=== PATIENT | female | born 1990 | race American Indian/Alaskan Native ===

== ENCOUNTER 2016-08-20 23:35 | Emergency (ER) | payer MEDICAID ==
[2016-08-21 05:12] VITALS: BP 134/84
[2016-08-21] MEDS ORDERED: MARCAINE 0.5% INFILTRATI ONE (05:27)
--- NOTE | 2016-08-21 05:42 | Emergency Department Report ---
Abscess Boil HPI - HPI Chief Complaint: Extremity Injury, Upper Stated Complaint: RT HAND MIDDLE FINGER SWOLLEN Time Seen by Provider: 08/21/16 05:09 Duration: >1 Week (2 weeks) Location: Upper Extremity (right third digit on hand) Severity: Moderate (6-10) History: Yes Pain (right third digit on hand), No Fever, No Purulent Drainage, No Numbness, No Foreign Body, No Previous History, No Insect Bite HPI: She and he reports that she is having swelling and redness around her fingernail of her right hand at the third finger. When asked if she bites her finger she says yes. She said this is going on for 2 weeks. Denies any drainage. Denies any injury to side. Denies any nausea or vomiting or fever or chills. She said that she did have time to take care of this case she had to work. Says she does not have any insurance and does not have a primary care despite having diabetes. She takes NovoLog and Lantus and her blood sugars are within normal limits. Denies any increase in urination, increased thirst. Denies any fever or chills or nausea or vomiting. Her only complaints is to her finger around her nail bed. Home Medications: Home Medications Medication Instructions Recorded Confirmed Last Taken Insulin Aspart Prot/Aspart(Nf) 15 units SQ TID 08/21/16 08/21/16 1 Day Ago [Novolog Mix 70/30] Insulin Glargine [Lantus VIAL] 40 units SQ HS 08/21/16 08/21/16 1 Day Ago Previous Rx's Medication Instructions Recorded Last Taken Type Sulfamethoxazole/Trimethoprim 1 each PO BID #20 tablet 08/21/16 Unknown Rx [Bactrim DS TAB] Allergies/Adverse Reactions: Allergies Allergy/AdvReac Type Severity Reaction Status Date / Time No Known Allergies Allergy Unverified 08/21/16 05:43 ED Review of Systems ROS: Stated complaint: RT HAND MIDDLE FINGER SWOLLEN Other details as noted in HPI Comment: All other systems reviewed and negative Constitutional: denies: chills, fever Eyes: denies: eye pain Respiratory: no symptoms reported Cardiovascular: denies: chest pain, palpitations, edema, syncope Gastrointestinal: denies: abdominal pain, nausea, vomiting, diarrhea Genitourinary: denies: urgency, dysuria, hematuria, discharge, abnormal menses, dyspareunia Musculoskeletal: arthralgia. denies: back pain, myalgia Skin: denies: rash Neurological: denies: headache ED Past Medical Hx - Past Medical History Previous Medical History?: Yes Hx Diabetes: Yes (IDDM) - Surgical History Past Surgical History?: No - Family History Family history: hypertension - Social History Smoking Status: Never Smoker Substance Use Type: None - Medications Home Medications: Home Medications Medication Instructions Recorded Confirmed Last Taken Type Insulin Aspart Prot/Aspart(Nf) 15 units SQ TID 08/21/16 08/21/16 1 Day Ago History [Novolog Mix 70/30] Insulin Glargine [Lantus VIAL] 40 units SQ HS 08/21/16 08/21/16 1 Day Ago History Sulfamethoxazole/Trimethoprim 1 each PO BID #20 tablet 08/21/16 Unknown Rx [Bactrim DS TAB] ED Abscess Boil Physical Exam - Exam General: Vital signs noted. No distress. Alert and acting appropriately. This is a 25-year-old female well-nourished well-developed in no acute distress. Exam: Yes Tenderness (right hand at third digit around nailbed with erythema, fluctuance and tenderness to palpate.), Yes Fluctuance (right hand third digit distal), Yes Surrounding Cellulites/Erythema (right hand third digit distally), Yes Normal Neurologic Exam, Yes Normal Circulation, No Lymphangitis, No Crepitation, No Heart Murmur Exam: Lungs: Auscultated bilaterally, no rhonchi wheezes or rales. Extremities: clubbing, cyanosis or edema. +2 pulses and no neurovascular compromise. Cardiovascular:S1S2, regular rate and rhythm negative murmur I & D Note - I & D Note I & D Note: Patient with paronychia at right third digit of hand distally around her nail bed. Patient digitally blocked with Marcaine 0.5% and attempted to drain with 18-gauge needle. Then under sterile procedure. No drainage noted from site. this is mostly cellulitis. There are dry dressing applied to area after cleansing with normal saline. Patient reports that her tetanus vaccine is up-to-date. SHe tolerated procedure well ED Course Vital Signs 08/21/16 08/21/16 00:54 05:12 Temperature 98.7 F Pulse Rate 84 71 Respiratory 18 18 Rate Blood Pressure 119/65 Blood Pressure 134/84 [Left] O2 Sat by Pulse 97 100 Oximetry - Reevaluation(s) Reevaluation #1: 08/21/16 07:24 See procedure note for digital block and incision and drainage Critical care attestation.: If time is entered above; I have spent that time in minutes in the direct care of this critically ill patient, excluding procedure time. ED Medical Decision Making - Medical Decision Making ED course: Patient with Paronychia to right third digit finger. Digital block and an incision and drainage done. No pus from site. This is mostly cellulitis. I instructed the patient that she needs to refrain from biting nails. I instructed her that I'll put her on medication to treat infection and she can take Tylenol for pain. Discharged home with prescription for Bactrim DS. I instructed her to follow-up with outside Medical Center since she does not have a primary care physician in 2-3 days. ED Disposition Clinical Impression: Paronychia of right middle finger, Arthralgia of right hand, Encounter for incision and drainage procedure, Cellulitis of right middle finger Disposition: DISCHARGED TO HOME OR SELFCARE Is pt being admited?: No Does the pt Need Aspirin: No Condition: Stable Instructions: Paronychia (ED), Cellulitis (ED) Additional Instructions: Please soak affected area and warm water 3-4 times a day. keep Affected area clean and dry. Refrain from biting her nails. She do not have a primary care physician, please follow-up with outside Medical Center in 2-3 days. See address and phone number and discharged instruction paperwork. Bactrim as prescribed. Prescriptions: Sulfamethoxazole/Trimethoprim [Bactrim DS TAB] 1 each PO BID #20 tablet Referrals: [facility] [Outside] - 2-3 Days Forms: Work/School Release Form(ED) - I & D Right Distal Finger Type of Procedure: Simple Site: right distal third digit of hand Blade Size: 18-gauge needle I & D Procedure: betadine prep, sterile drapes applied, sterile dressing applied Progress: No significant pus came from site. Area cleansed and sterile dressing applied and patient will be placed on antibiotic. - Nerve Block Consent Obtained: verbal consent Time Out Performed: Yes Local Anesthetic Used: Marcaine 0.5% Amount of anesthesia used: 1 Side: right (hand 3rd finger) Nerve Blocks: digital Procedure Successful: Yes Complications: none Patient Tolerated Procedure: well
== END 2016-08-21 07:37 | disposition home or self-care (01) ==
LOC: ED 23:35
DX: L03.011 Cellulitis of right finger (principal); M25.541 Pain in joints of right hand; E11.9 Type 2 diabetes mellitus without complications; Z79.4 Long term (current) use of insulin
CPT/HCPCS: 99282

== ENCOUNTER 2016-10-31 13:56 | Emergency (ER) | payer MEDICAID ==
[2016-10-31 14:40] LABS: Basophils % (Auto) 0.5 % (0.0-1.8); Eosinophils % (Auto) 0.9 % (0.0-4.3); Hematocrit 41.6 % (30.3-42.9); Hemoglobin 13.7 gm/dl (10.1-14.3); Mean Corpuscular HGB Conc 33 % (30-34); Mean Corpuscular Hemoglobin 29 pg (28-32); Mean Corpuscular Volume 87 fl (79-97); Platelet Count 283 K/mm3 (140-440); Red Blood Count 4.79 M/mm3 (3.65-5.03); Red Cell Distribution Width 12.9 % (13.2-15.2); White Blood Count 9.9 K/mm3 (4.5-11.0)
[2016-10-31 14:54] LABS: Anion Gap 16 mmol/L; Blood Urea Nitrogen 8 mg/dL (7-17); Calcium 8.3 mg/dL (8.4-10.2); Carbon Dioxide 25 mmol/L (22-30); Chloride 99.2 mmol/L (98-107); Glucose 375 mg/dL (65-100); Potassium 3.9 mmol/L (3.6-5.0); Sodium 136 mmol/L (137-145)
[2016-10-31 15:05] LABS: Bacteria,Urine 1+ /HPF (Negative); Bilirubin,Urine NEG (Negative); Blood,Urine NEG (Negative); Ketones,Urine NEG (Negative); Leukocyte Esterase,Urine SM (Negative); Mucus,Urine FEW /HPF; Nitrite,Urine NEG (Negative); Protein,Urine <15 mg/dL mg/dL (Negative); Urobilinogen,Urine < 2.0 mg/dL (<2.0)
[2016-10-31] MEDS ORDERED: NACL 0.9% 1000 ML 1,000 ML IV ONE (23:35)
--- NOTE | 2016-10-31 23:35 | Emergency Department Report ---
HPI - General Chief Complaint: Nausea/Vomiting/Diarrhea Time Seen by Provider: 10/31/16 23:16 - HPI HPI: Room 5 The patient is a 25-year-old female presenting with a chief complaint of nausea vomiting. The patient states she ran out of her insulin approximate 4 days ago and since then she began to feel "sick." The patient states this morning at 06: 00 she developed nausea vomiting began to feel weak and lightheaded. The patient states she's had a decreased appetite and when she drinks water it makes her want to vomit. Location: [see above] Duration: [see above] Quality: Lightheadedness Severity: Moderate Modifying factors: [see above] Context: [see above] Mode of transportation: [not driving] ED Past Medical Hx - Past Medical History Previous Medical History?: Yes Hx Diabetes: Yes (IDDM) - Surgical History Past Surgical History?: No - Family History Family history: no significant - Social History Smoking Status: Never Smoker Substance Use Type: None (denies illicit drug use) - Medications Home Medications: Home Medications Medication Instructions Recorded Confirmed Last Taken Type Insulin Aspart Prot/Aspart(Nf) 15 units SQ TID 08/21/16 08/21/16 1 Day Ago History [Novolog Mix 70/30] Insulin Glargine [Lantus VIAL] 40 units SQ HS 08/21/16 08/21/16 1 Day Ago History Sulfamethoxazole/Trimethoprim 1 each PO BID #20 tablet 08/21/16 Unknown Rx [Bactrim DS TAB] Insulin Detemir [Levemir VIAL] 40 unit SQ QHS #1 vial 10/31/16 Unknown Rx Insulin Lispro [HumaLOG VIAL] 15 units SQ AC #1 vial 10/31/16 Unknown Rx Sulfamethoxazole/Trimethoprim 1 each PO BID #14 tablet 10/31/16 Unknown Rx [Bactrim DS TAB] Promethazine [Phenergan TAB] 25 mg PO Q6HR PRN #20 tab 11/01/16 Unknown Rx ED Review of Systems ROS: Stated complaint: NAUSEA Other details as noted in HPI Comment: All other systems reviewed and negative Constitutional: weakness. denies: chills, fever Eyes: denies: eye pain, eye discharge, vision change ENT: denies: ear pain, throat pain Respiratory: denies: cough, shortness of breath, wheezing Cardiovascular: denies: chest pain, palpitations Endocrine: no symptoms reported Gastrointestinal: nausea, vomiting Genitourinary: denies: urgency, dysuria, discharge Musculoskeletal: denies: back pain, joint swelling, arthralgia Skin: denies: rash, lesions Neurological: denies: headache, weakness, paresthesias Psychiatric: denies: anxiety, depression Hematological/Lymphatic: denies: easy bleeding, easy bruising Physical Exam - Physical Exam Vital Signs: Vital Signs 10/31/16 14:05 Temperature 98.6 F Pulse Rate 60 Respiratory 18 Rate Blood Pressure 118/60 O2 Sat by Pulse 100 Oximetry Physical Exam: GENERAL: The patient is well-developed well-nourished female lying on stretcher using cell phone not appear to be in acute distress. [] HEENT: Normocephalic. Atraumatic. Extraocular motions are intact. Patient has moist mucous membranes. NECK: Supple. Trachea midline CHEST/LUNGS: Clear to auscultation. There is no respiratory distress noted. HEART/CARDIOVASCULAR: Regular. There is no tachycardia. There is no gallop rub or murmur. ABDOMEN: Abdomen is soft, with mild suprapubic discomfort to palpation. No rebound or guarding. Patient has normal bowel sounds. There is no abdominal distention. SKIN: There is no rash. There is no edema. There is no diaphoresis. NEURO: The patient is awake, alert, and oriented. The patient is cooperative. The patient has normal speech MUSCULOSKELETAL: There is no evidence of acute injury. ED Course Vital Signs 10/31/16 14:05 Temperature 98.6 F Pulse Rate 60 Respiratory 18 Rate Blood Pressure 118/60 O2 Sat by Pulse 100 Oximetry ED Medical Decision Making - Lab Data Result diagrams: 10/31/16 14:10 10/31/16 14:10 Laboratory Tests 10/31/16 10/31/16 10/31/16 14:10 14:10 14:25 WBC 9.9 RBC 4.79 Hgb 13.7 Hct 41.6 MCV 87 MCH 29 MCHC 33 RDW 12.9 L Plt Count 283 Lymph % (Auto) 32.0 [place] % (Auto) 4.2 Eos % (Auto) 0.9 Baso % (Auto) 0.5 Lymph # 3.2 [place] # 0.4 Eos # 0.1 Baso # 0.0 Seg Neutrophils % 62.4 Seg Neutrophils # 6.2 VBG pH Sodium 136 L Potassium 3.9 Chloride 99.2 Carbon Dioxide 25 Anion Gap 16 BUN 8 Creatinine 0.4 L Estimated GFR > 60 BUN/Creatinine Ratio 20.00 Glucose 375 H POC Glucose Calcium 8.3 L HCG, Qual Urine Color Straw Urine Turbidity Clear Urine pH 6.0 Ur Specific [place] 1.028 Urine Protein <15 mg/dl Urine Glucose (UA) >=500 Urine Ketones Neg Urine Blood Neg Urine Nitrite Neg Urine Bilirubin Neg Urine Urobilinogen < 2.0 Ur Leukocyte Esterase Sm Urine WBC (Auto) 18.0 H Urine RBC (Auto) 1.0 U Epithel Cells (Auto) 3.0 Urine Bacteria (Auto) 1+ Urine Mucus Few 10/31/16 10/31/16 10/31/16 14:25 15:41 23:30 WBC RBC Hgb Hct MCV MCH MCHC RDW Plt Count Lymph % (Auto) [place] % (Auto) Eos % (Auto) Baso % (Auto) Lymph # [place] # Eos # Baso # Seg Neutrophils % Seg Neutrophils # VBG pH 7.334 Sodium Potassium Chloride Carbon Dioxide Anion Gap BUN Creatinine Estimated GFR BUN/Creatinine Ratio Glucose POC Glucose 410 H Calcium HCG, Qual Negative Urine Color Urine Turbidity Urine pH Ur Specific [place] Urine Protein Urine Glucose (UA) Urine Ketones Urine Blood Urine Nitrite Urine Bilirubin Urine Urobilinogen Ur Leukocyte Esterase Urine WBC (Auto) Urine RBC (Auto) U Epithel Cells (Auto) Urine Bacteria (Auto) Urine Mucus - Differential Diagnosis DKA, hyperglycemia, dehydration, UTI Critical care attestation.: If time is entered above; I have spent that time in minutes in the direct care of this critically ill patient, excluding procedure time. ED Disposition Clinical Impression: Hyperglycemia, UTI (urinary tract infection), Nausea & vomiting Disposition: DC-01 TO HOME OR SELFCARE Is pt being admited?: No Does the pt Need Aspirin: No Condition: Stable Instructions: Diabetic Hyperglycemia (ED) Additional Instructions: Return to the emergency department immediately should you develop worsening symptoms, fever, inability to tolerate food or liquid or any other concerns. Prescriptions: Insulin Detemir [Levemir VIAL] 40 unit SQ QHS #1 vial Insulin Lispro [HumaLOG VIAL] 15 units SQ AC #1 vial Promethazine [Phenergan TAB] 25 mg PO Q6HR PRN #20 tab PRN Reason: Nausea Sulfamethoxazole/Trimethoprim [Bactrim DS TAB] 1 each PO BID #14 tablet Referrals: JULIUS GARCIA MD [Staff Physician] - 3-5 Days [facility] [Outside] - 3-5 Days Time of Disposition: 01:08
[2016-10-31] MEDS ORDERED: ZOFRAN IV ONE (23:38)
[2016-10-31] MEDS ORDERED: ZOFRAN ONE (23:38)
[2016-11-01 02:09] VITALS: BP 97/35
== END 2016-11-01 02:07 | disposition home or self-care (01) ==
LOC: ED 13:56
DX: E11.65 Type 2 diabetes mellitus with hyperglycemia (principal); N39.0 Urinary tract infection, site not specified; R11.2 Nausea with vomiting, unspecified; Z79.4 Long term (current) use of insulin
CPT/HCPCS: 36415; 80048; 81001; 82805; 82962; 84703; 85025; 96361; 96374; 96375; 99284; J2405; J7030; J1815

== ENCOUNTER 2019-01-14 18:03 | Emergency (ER) | payer SELFPAY ==
--- NOTE | 2019-01-14 18:29 | Emergency Department Report ---
Blank Doc - Documentation Documentation: 28-year-old female that presents with abd pain and n/v. This initial assessment/diagnostic orders/clinical plan/treatment(s) is/are subject to change based on patient's health status, clinical progression and re- assessment by fellow clinical providers in the ED. Further treatment and workup at subsequent clinical providers discretion. Patient/guardians urged not to elope from the ED as their condition may be serious if not clinically assessed and managed. Initial orders include: 1- Patient sent to [facility] for further evaluation and treatment 2- labs 3- UA
[2019-01-14 19:36] LABS: Bilirubin,Urine NEG (Negative); Blood,Urine NEG (Negative); Color,Urine Yellow (Yellow); Mucus,Urine 3+ /HPF; Protein,Urine <15 mg/dL mg/dL (Negative); Urobilinogen,Urine < 2.0 mg/dL (<2.0)
[2019-01-14 19:38] LABS: Basophils % (Auto) 0.3 % (0.0-1.8); Eosinophils # (Auto) 0.1 K/mm3 (0.0-0.4); Eosinophils % (Auto) 1.1 % (0.0-4.3); Hematocrit 43.2 % (30.3-42.9); Lymphocytes # (Auto) 1.5 K/mm3 (1.2-5.4); Lymphocytes % (Auto) 16.7 % (13.4-35.0); Mean Corpuscular HGB Conc 33 % (30-34); Mean Corpuscular Volume 87 fl (79-97); Monocytes # (Auto) 0.3 K/mm3 (0.0-0.8); Monocytes % (Auto) 3.8 % (0.0-7.3); Platelet Count 252 K/mm3 (140-440); Red Blood Count 4.98 M/mm3 (3.65-5.03); Red Cell Distribution Width 13.2 % (13.2-15.2)
[2019-01-14 19:38] LABS: HCG Qualitative,Urine Negative (Negative)
[2019-01-14 19:57] LABS: Alanine Aminotransferase 13 units/L (7-56); Albumin 3.3 g/dL (3.9-5); BUN/Creatinine Ratio 20; Blood Urea Nitrogen 10 mg/dL (7-17); Calcium 8.3 mg/dL (8.4-10.2); Hemolysis Index 17
[2019-01-14] MEDS ORDERED: PEPCID PO ONE (22:54)
[2019-01-14] MEDS ORDERED: TYLENOL PO ONE (22:54)
[2019-01-14] MEDS ORDERED: CARAFATE PO ONE (22:54)
[2019-01-14] MEDS ORDERED: ZOFRAN ORAL LIQ PO ONE (22:54)
--- NOTE | 2019-01-14 22:56 | Emergency Department Report ---
ED General Adult HPI - General Chief complaint: Nausea/Vomiting/Diarrhea Stated complaint: VOMITING/ABD PAIN Time Seen by Provider: 01/14/19 18:28 Source: patient, RN notes reviewed, old records reviewed Mode of arrival: Ambulatory Limitations: No Limitations - History of Present Illness Initial comments: This is a pleasant 28-year-old female. This patient is not known to this provider previously. She reports that she typically receives her medical care at [place]. She is a diabetic and appears to have a history of obesity. She states that she is not . She presents to the ER with a complaint of nausea, nonbloody, nonbilious, mild abdominal cramping, and 4-6 episodes of green watery diarrhea. Symptoms present for the past 24 hours. She cannot recall any recent travel, consuming raw or undercooked food, or sick contacts. Her symptoms improved on their own in the emergency room, and she began to consume cora jigar. She denies urinary symptoms. She feels mostly improved at this time. -: Gradual, hour(s) Location: abdomen Radiation: non-radiation Quality: aching Consistency: intermittent Improves with: rest Worsens with: none - Related Data Home Medications Medication Instructions Recorded Confirmed Last Taken Insulin Aspart Prot/Aspart(Nf) 15 units SQ TID 08/21/16 08/21/16 1 Day Ago [Novolog Mix 70/30] ~08/20/16 Insulin Glargine [Lantus VIAL] 40 units SQ HS 08/21/16 08/21/16 1 Day Ago ~08/20/16 Previous Rx's Medication Instructions Recorded Last Taken Type Sulfamethoxazole/Trimethoprim 1 each PO BID #20 tablet 08/21/16 Unknown Rx [Bactrim DS TAB] Insulin Detemir [Levemir VIAL] 40 unit SQ QHS #1 vial 10/31/16 Unknown Rx Insulin Lispro [HumaLOG VIAL] 15 units SQ AC #1 vial 10/31/16 Unknown Rx Sulfamethoxazole/Trimethoprim 1 each PO BID #14 tablet 10/31/16 Unknown Rx [Bactrim DS TAB] Promethazine [Phenergan TAB] 25 mg PO Q6HR PRN #20 tab 11/01/16 Unknown Rx Acetaminophen [Non-Aspirin Extra 500 mg PO Q6HR PRN #30 tablet 01/14/19 Unknown Rx Strength] Famotidine [Pepcid] 20 mg PO BID #10 tablet 01/14/19 Unknown Rx Ondansetron [Zofran Odt] 4 mg PO Q8HR PRN #20 tab.rapdis 01/14/19 Unknown Rx Allergies Allergy/AdvReac Type Severity Reaction Status Date / Time No Known Allergies Allergy Unverified 08/21/16 05:43 ED Review of Systems ROS: Stated complaint: VOMITING/ABD PAIN Other details as noted in HPI Constitutional: denies: fever Eyes: denies: eye discharge ENT: denies: congestion Respiratory: denies: wheezing Cardiovascular: denies: syncope Gastrointestinal: abdominal pain, nausea, vomiting, diarrhea Genitourinary: denies: dysuria Musculoskeletal: denies: myalgia Skin: denies: lesions Neurological: denies: weakness Hematological/Lymphatic: denies: easy bleeding ED Past Medical Hx - Past Medical History Previous Medical History?: Yes Hx Diabetes: Yes (IDDM) - Social History Smoking Status: Never Smoker Substance Use Type: None - Medications Home Medications: Home Medications Medication Instructions Recorded Confirmed Last Taken Type Insulin Aspart Prot/Aspart(Nf) 15 units SQ TID 08/21/16 08/21/16 1 Day Ago History [Novolog Mix 70/30] ~08/20/16 Insulin Glargine [Lantus VIAL] 40 units SQ HS 08/21/16 08/21/16 1 Day Ago History ~08/20/16 Sulfamethoxazole/Trimethoprim 1 each PO BID #20 tablet 08/21/16 Unknown Rx [Bactrim DS TAB] Insulin Detemir [Levemir VIAL] 40 unit SQ QHS #1 vial 10/31/16 Unknown Rx Insulin Lispro [HumaLOG VIAL] 15 units SQ AC #1 vial 10/31/16 Unknown Rx Sulfamethoxazole/Trimethoprim 1 each PO BID #14 tablet 10/31/16 Unknown Rx [Bactrim DS TAB] Promethazine [Phenergan TAB] 25 mg PO Q6HR PRN #20 tab 11/01/16 Unknown Rx Acetaminophen [Non-Aspirin Extra 500 mg PO Q6HR PRN #30 tablet 01/14/19 Unknown Rx Strength] Famotidine [Pepcid] 20 mg PO BID #10 tablet 01/14/19 Unknown Rx Ondansetron [Zofran Odt] 4 mg PO Q8HR PRN #20 tab.rapdis 01/14/19 Unknown Rx ED Physical Exam - General Limitations: No Limitations General appearance: alert, in no apparent distress, obese - Head Head exam: Present: atraumatic, normocephalic - Eye Eye exam: Present: normal appearance, EOMI. Absent: nystagmus - ENT ENT exam: Present: normal exam, normal orophraynx, mucous membranes moist, normal external ear exam - Neck Neck exam: Present: normal inspection, full ROM. Absent: tenderness, meningismus - Respiratory Respiratory exam: Present: normal lung sounds bilaterally. Absent: respiratory distress - Cardiovascular Cardiovascular Exam: Present: regular rate, normal rhythm, normal heart sounds. Absent: bradycardia, tachycardia, irregular rhythm, systolic murmur, diastolic murmur, rubs, gallop - GI/Abdominal GI/Abdominal exam: Present: soft, normal bowel sounds, other (there is negative Rovsing sign. There is a negative [place]red[place] sign. The abdomen is soft and benign.). Absent: distended, tenderness, guarding, rebound, rigid, pulsatile mass - Extremities Exam Extremities exam: Present: normal inspection, full ROM, other (2+ pulses noted in the bilateral upper, lower extremities. There is no long bone tenderness. Musculoskeletal compartments are soft. The pelvis is stable.). Absent: pedal edema, calf tenderness - Back Exam Back exam: Present: normal inspection, full ROM. Absent: tenderness, CVA tenderness (R), CVA tenderness (L), paraspinal tenderness, vertebral tenderness - Neurological Exam Neurological exam: Present: alert, other (there is no facial droop. The tongue is midline. Extraocular movements are intact bilaterally. Patient speaking in full complete sentences. Shoulder shrug is intact bilaterally. Hearing is grossly intact bilaterally. Visual acuity intact to finger counting and color perception at a close distance. 5/5 strength 4 extremities. Sensation intact to light touch in 4 extremities.). Absent: motor sensory deficit - Psychiatric Psychiatric exam: Present: normal affect, normal mood - Skin Skin exam: Present: warm, dry, intact, normal color. Absent: rash ED Course Vital Signs 01/14/19 01/14/19 01/14/19 18:07 23:19 23:36 Temperature 99.3 F 98.6 F Pulse Rate 87 76 Respiratory 16 18 18 Rate Blood Pressure 109/61 Blood Pressure 119/71 [Left] O2 Sat by Pulse 95 100 Oximetry ED Medical Decision Making - Lab Data Result diagrams: 01/14/19 19:19 01/14/19 19:19 Vital Signs 01/14/19 01/14/19 01/14/19 18:07 23:19 23:36 Temperature 99.3 F 98.6 F Pulse Rate 87 76 Respiratory 16 18 18 Rate Blood Pressure 109/61 Blood Pressure 119/71 [Left] O2 Sat by Pulse 95 100 Oximetry Lab Results 01/14/19 01/14/19 01/14/19 Range/Units 19:19 19:19 Unknown WBC 8.8 (4.5-11.0) K/mm3 RBC 4.98 (3.65-5.03) M/mm3 Hgb 14.0 (10.1-14.3) gm/dl Hct 43.2 H (30.3-42.9) % MCV 87 (79-97) fl MCH 28 (28-32) pg MCHC 33 (30-34) % RDW 13.2 (13.2-15.2) % Plt Count 252 (140-440) K/mm3 Lymph % (Auto) 16.7 (13.4-35.0) % [place] % (Auto) 3.8 (0.0-7.3) % Eos % (Auto) 1.1 (0.0-4.3) % Baso % (Auto) 0.3 (0.0-1.8) % Lymph # 1.5 (1.2-5.4) K/mm3 [place] # 0.3 (0.0-0.8) K/mm3 Eos # 0.1 (0.0-0.4) K/mm3 Baso # 0.0 (0.0-0.1) K/mm3 Seg Neutrophils % 78.1 H (40.0-70.0) % Seg Neutrophils # 6.9 (1.8-7.7) K/mm3 Sodium 135 L (137-145) mmol/L Potassium 3.6 (3.6-5.0) mmol/L Chloride 102.5 (98-107) mmol/L Carbon Dioxide 20 L (22-30) mmol/L Anion Gap 16 mmol/L BUN 10 (7-17) mg/dL Creatinine 0.5 L (0.7-1.2) mg/dL Estimated GFR > 60 ml/min BUN/Creatinine Ratio 20 % Glucose 222 H (65-100) mg/dL Calcium 8.3 L (8.4-10.2) mg/dL Total Bilirubin 0.90 (0.1-1.2) mg/dL AST 13 (5-40) units/L ALT 13 (7-56) units/L Alkaline Phosphatase 62 (35-129) units/L Total Protein 6.4 (6.3-8.2) g/dL Albumin 3.3 L (3.9-5) g/dL Albumin/Globulin Ratio 1.1 % Lipase 6 L (13-60) units/L Urine Color Yellow (Yellow) Urine Turbidity Clear (Clear) Urine pH 5.0 (5.0-7.0) Ur Specific [place] 1.024 (1.003-1.030) Urine Protein <15 mg/dl (Negative) mg/dL Urine Glucose (UA) Neg (Negative) mg/dL Urine Ketones Neg (Negative) mg/dL Urine Blood Neg (Negative) Urine Nitrite Neg (Negative) Urine Bilirubin Neg (Negative) Urine Urobilinogen < 2.0 (<2.0) mg/dL Ur Leukocyte Esterase Neg (Negative) Urine WBC (Auto) 4.0 (0.0-6.0) /HPF Urine RBC (Auto) 2.0 (0.0-6.0) /HPF U Epithel Cells (Auto) 1.0 (0-13.0) /HPF Urine Mucus 3+ /HPF Urine HCG, Qual Negative (Negative) - EKG Data -: EKG Interpreted by [facility] EKG shows normal: sinus rhythm Rate: normal - EKG Data When compared to previous EKG there are: previous EKG unavailable 01/14/19 23:49 There is no prior EKG available for comparison. This EKG is not consistent with ST elevation myocardial infarction. The EKG shows a sinus rhythm, axis, QTC within normal limits, there is low voltage, the EKG is not consistent with STEMI, there is no prior for comparison. The EKG is fairly unremarkable. - Medical Decision Making Differential diagnosis, including but not limited to: Gastroenteritis, viral syndrome, urinary tract infection, incidental hyperglycemia Assessment and plan: 28-year-old female endorsing nausea, vomiting, diarrhea and abdominal discomfort. The patient is afebrile with reassuring vital signs. With distraction, abdomen soft and benign, with no rebound, guarding or pe ritoneal signs. Patient tolerating oral feeds and liquids in the emergency room without difficulty. Minimal hyperglycemia reviewed and appreciated, there is no anion gap acidosis does not require emergent intervention at this time. The patient has not demonstrated physical exam findings that would require advanced imaging at this time. She's been observed in the ER for a few hours without clinical decompensation. She is medically suitable to be discharged with outpatient supportive care. She indicates she is reliable to follow-up. Critical care attestation.: If time is entered above; I have spent that time in minutes in the direct care of this critically ill patient, excluding procedure time. ED Disposition Clinical Impression: History of nausea and vomiting, History of diarrhea Disposition: DC- TO HOME OR SELFCARE Is pt being admited?: No Does the pt Need Aspirin: No Condition: Stable Additional Instructions: Avoid consumption of Motrin, ibuprofen, Naprosyn, Aleve. Avoid consumption of heavy and spicy foods. Advance diet as tolerated. As discussed, initiate gentle foods, red, rice, apples, toast, salty chicken soup. Please make certain to wash hands with soap and water before and after urinating, defecating, vomiting, and before handling food. Patient most likely has a virus, and this is typically a self resolving condition. Please follow-up with the primary care doctor within 7-10 days for repeat checkup and evaluation. Please return to the emergency room right away with new, worsening, different symptoms not present on the initial emergency room evaluation. Prescriptions: Acetaminophen [Non-Aspirin Extra Strength] 500 mg PO Q6HR PRN #30 tablet PRN Reason: Pain , Severe (7-10) Famotidine [Pepcid] 20 mg PO BID #10 tablet Ondansetron [Zofran Odt] 4 mg PO Q8HR PRN #20 tab.rapdis PRN Reason: Nausea Referrals: PRIMARY CARE, [Primary Care Provider] - 3-5 Days [facility] [Provider Group] - 3-5 Days [facility] [Provider Group] - 3-5 Days Forms: Work/School Release Form(ED)
[2019-01-14 23:20] VITALS: BP 119/71
== END 2019-01-15 00:05 | disposition home or self-care (01) ==
LOC: ED 18:03
DX: R11.2 Nausea with vomiting, unspecified (principal); R19.7 Diarrhea, unspecified; E66.9 Obesity, unspecified; Z68.41 Body mass index [BMI] 40.0-44.9, adult; E11.65 Type 2 diabetes mellitus with hyperglycemia; Z79.4 Long term (current) use of insulin; Z79.899 Other long term (current) drug therapy
CPT/HCPCS: 36415; 80053; 81001; 81025; 83690; 85025; 93005; 93010; 99283; Q0162

== ENCOUNTER 2019-11-21 09:21 | Emergency (ER) | payer OTHER ==
[2019-11-21 09:26] VITALS: BP 133/78
[2019-11-21] MEDS ORDERED: SODIUM CHLORIDE 0.9% 1000 ML 1,000 ML IV ONE (10:03)
[2019-11-21] MEDS ORDERED: ONDANSETRON 4 MG/2 ML INJ IV ONE (10:03)
[2019-11-21 10:24] LABS: Basophils # (Auto) 0.1 K/mm3 (0.0-0.1); Basophils % (Auto) 1.1 % (0.0-1.8); Eosinophils # (Auto) 0.2 K/mm3 (0.0-0.4); Eosinophils % (Auto) 1.6 % (0.0-4.3); Hematocrit 39.7 % (30.3-42.9); Hemoglobin 13.3 gm/dl (10.1-14.3); Lymphocytes # (Auto) 2.6 K/mm3 (1.2-5.4); Lymphocytes % (Auto) 26.8 % (13.4-35.0); Mean Corpuscular HGB Conc 34 % (30-34); Mean Corpuscular Volume 86 fl (79-97); Monocytes # (Auto) 0.4 K/mm3 (0.0-0.8); Monocytes % (Auto) 4.5 % (0.0-7.3); Red Blood Count 4.62 M/mm3 (3.65-5.03)
[2019-11-21 10:25] LABS: Platelet Count 258 K/mm3 (140-440)
[2019-11-21 10:34] LABS: Alanine Aminotransferase 13 units/L (7-56); Albumin 3.8 g/dL (3.9-5); Blood Urea Nitrogen 10 mg/dL (7-17); Calcium 9.4 mg/dL (8.4-10.2); Hemolysis Index 15
[2019-11-21 10:35] LABS: Bacteria,Urine 1+ /HPF (Negative); Bilirubin,Urine NEG (Negative); Blood,Urine LG (Negative); Color,Urine Yellow (Yellow); Mucus,Urine 1+ /HPF; Urobilinogen,Urine < 2.0 mg/dL (<2.0)
[2019-11-21 10:38] LABS: BUN/Creatinine Ratio 17
--- NOTE | 2019-11-21 11:06 | Emergency Department Report ---
ED General Adult HPI - General Chief complaint: Nausea/Vomiting/Diarrhea Stated complaint: light headed/vomiting Time Seen by Provider: 11/21/19 09:54 Source: patient Mode of arrival: Ambulatory Limitations: No Limitations - History of Present Illness Initial comments: Patient is a 28-year-old female presents emergency room with complaints of nausea vomiting that began a couple days ago. She states that she has approximately 3 episodes per day. She is able to tolerate p.o. intake. She states over the last couple of days that her blood glucose has been running high. She states that she talked to her primary care doctor who advised her to increase her insulin units. She states that she had not taken her blood sugar today to see what the value was. She states that she also has some mild lower abdominal cramping. She denies any diarrhea, fever, dysuria, dark urine, urinary frequency, hematemesis, hematochezia, melena. She denies any sick contacts, recent travel, recent antibiotics, water from a different source. She has a past medical history of diabetes and uses insulin. No allergies to medications. Last menstrual cycle 11/01/2019. - Related Data Home Medications Medication Instructions Recorded Confirmed Last Taken Insulin Aspart Prot/Aspart(Nf) 15 units SQ TID 08/21/16 08/21/16 1 Day Ago [Novolog Mix 70/30] ~08/20/16 Insulin Glargine [Lantus VIAL] 40 units SQ HS 08/21/16 08/21/16 1 Day Ago ~08/20/16 Previous Rx's Medication Instructions Recorded Last Taken Type Sulfamethoxazole/Trimethoprim 1 each PO BID #20 tablet 08/21/16 Unknown Rx [Bactrim DS TAB] Insulin Detemir [Levemir VIAL] 40 unit SQ QHS #1 vial 10/31/16 Unknown Rx Insulin Lispro [HumaLOG VIAL] 15 units SQ AC #1 vial 10/31/16 Unknown Rx Sulfamethoxazole/Trimethoprim 1 each PO BID #14 tablet 10/31/16 Unknown Rx [Bactrim DS TAB] Promethazine [Phenergan TAB] 25 mg PO Q6HR PRN #20 tab 11/01/16 Unknown Rx Acetaminophen [Non-Aspirin Extra 500 mg PO Q6HR PRN #30 tablet 01/14/19 Unknown Rx Strength] Famotidine [Pepcid] 20 mg PO BID #10 tablet 01/14/19 Unknown Rx Ondansetron [Zofran Odt] 4 mg PO Q8HR PRN #20 tab.rapdis 01/14/19 Unknown Rx Ondansetron [Zofran Odt] 4 mg PO Q8HR PRN #10 tab.rapdis 11/21/19 Unknown Rx cephALEXin [Keflex] 500 mg PO BID 7 Days #14 cap 11/21/19 Unknown Rx Allergies Allergy/AdvReac Type Severity Reaction Status Date / Time No Known Allergies Allergy Unverified 08/21/16 05:43 ED Review of Systems ROS: Stated complaint: light headed/vomiting Other details as noted in HPI Comment: All other systems reviewed and negative ED Past Medical Hx - Past Medical History Previous Medical History?: Yes Hx Diabetes: Yes (IDDM) - Surgical History Past Surgical History?: Yes Additional Surgical History: Tonsilectomy - Social History Smoking Status: Never Smoker Substance Use Type: None - Medications Home Medications: Home Medications Medication Instructions Recorded Confirmed Last Taken Type Insulin Aspart Prot/Aspart(Nf) 15 units SQ TID 08/21/16 08/21/16 1 Day Ago History [Novolog Mix 70/30] ~08/20/16 Insulin Glargine [Lantus VIAL] 40 units SQ HS 08/21/16 08/21/16 1 Day Ago History ~08/20/16 Sulfamethoxazole/Trimethoprim 1 each PO BID #20 tablet 08/21/16 Unknown Rx [Bactrim DS TAB] Insulin Detemir [Levemir VIAL] 40 unit SQ QHS #1 vial 10/31/16 Unknown Rx Insulin Lispro [HumaLOG VIAL] 15 units SQ AC #1 vial 10/31/16 Unknown Rx Sulfamethoxazole/Trimethoprim 1 each PO BID #14 tablet 10/31/16 Unknown Rx [Bactrim DS TAB] Promethazine [Phenergan TAB] 25 mg PO Q6HR PRN #20 tab 11/01/16 Unknown Rx Acetaminophen [Non-Aspirin Extra 500 mg PO Q6HR PRN #30 tablet 01/14/19 Unknown Rx Strength] Famotidine [Pepcid] 20 mg PO BID #10 tablet 01/14/19 Unknown Rx Ondansetron [Zofran Odt] 4 mg PO Q8HR PRN #20 tab.rapdis 10/16/19 Unknown Rx Ondansetron [Zofran Odt] 4 mg PO Q8HR PRN #10 tab.rapdis 11/21/19 Unknown Rx cephALEXin [Keflex] 500 mg PO BID 7 Days #14 cap 11/21/19 Unknown Rx ED Physical Exam - General Limitations: No Limitations General appearance: alert, in no apparent distress - Head Head exam: Present: atraumatic, normocephalic - Eye Eye exam: Present: normal appearance - ENT ENT exam: Present: mucous membranes moist - Respiratory Respiratory exam: Present: normal lung sounds bilaterally. Absent: respiratory distress, wheezes, rales, rhonchi, stridor, chest wall tenderness, accessory muscle use, decreased breath sounds, prolonged expiratory - Cardiovascular Cardiovascular Exam: Present: regular rate, normal rhythm, normal heart sounds. Absent: systolic murmur, diastolic murmur, rubs, gallop - GI/Abdominal GI/Abdominal exam: Present: soft, normal bowel sounds. Absent: distended, tenderness, guarding, rebound, rigid - Neurological Exam Neurological exam: Present: alert, oriented X3 - Psychiatric Psychiatric exam: Present: normal affect, normal mood - Skin Skin exam: Present: warm, dry, intact ED Course Vital Signs 11/21/19 09:24 Temperature 97.9 F Pulse Rate 59 L Respiratory 18 Rate Blood Pressure 133/78 O2 Sat by Pulse 99 Oximetry ED Medical Decision Making - Lab Data Result diagrams: 11/21/19 09:50 11/21/19 09:50 Lab Results 11/21/19 11/21/19 11/21/19 Range/Units 09:42 09:50 09:50 WBC 9.8 (4.5-11.0) K/mm3 RBC 4.62 (3.65-5.03) M/mm3 Hgb 13.3 (10.1-14.3) gm/dl Hct 39.7 (30.3-42.9) % MCV 86 (79-97) fl MCH 29 (28-32) pg MCHC 34 (30-34) % RDW 13.0 L (13.2-15.2) % Plt Count 258 (140-440) K/mm3 Lymph % (Auto) 26.8 (13.4-35.0) % [place] % (Auto) 4.5 (0.0-7.3) % Eos % (Auto) 1.6 (0.0-4.3) % Baso % (Auto) 1.1 (0.0-1.8) % Lymph # 2.6 (1.2-5.4) K/mm3 [place] # 0.4 (0.0-0.8) K/mm3 Eos # 0.2 (0.0-0.4) K/mm3 Baso # 0.1 (0.0-0.1) K/mm3 Seg Neutrophils % 66.0 (40.0-70.0) % Seg Neutrophils # 6.5 (1.8-7.7) K/mm3 Sodium 138 (137-145) mmol/L Potassium 4.0 (3.6-5.0) mmol/L Chloride 99.9 (98-107) mmol/L Carbon Dioxide 23 (22-30) mmol/L Anion Gap 19 mmol/L BUN 10 (7-17) mg/dL Creatinine 0.6 (0.6-1.2) mg/dL Estimated GFR > 60 ml/min BUN/Creatinine Ratio 17 % Glucose 214 H (65-100) mg/dL POC Glucose 178 H (70-105) Calcium 9.4 (8.4-10.2) mg/dL Total Bilirubin 0.90 (0.1-1.2) mg/dL AST 14 (5-40) units/L ALT 13 (7-56) units/L Alkaline Phosphatase 77 (35-129) units/L Total Protein 7.9 (6.3-8.2) g/dL Albumin 3.8 L (3.9-5) g/dL Albumin/Globulin Ratio 0.9 % Lipase 10 L (13-60) units/L HCG, Qual (Negative) Urine Color (Yellow) Urine Turbidity (Clear) Urine pH (5.0-7.0) Ur Specific [place] (1.003-1.030) Urine Protein (Negative) mg/dL Urine Glucose (UA) (Negative) mg/dL Urine Ketones (Negative) mg/dL Urine Blood (Negative) Urine Nitrite (Negative) Urine Bilirubin (Negative) Urine Urobilinogen (<2.0) mg/dL Ur Leukocyte Esterase (Negative) Urine WBC (Auto) (0.0-6.0) /HPF Urine RBC (Auto) (0.0-6.0) /HPF U Epithel Cells (Auto) (0-13.0) /HPF Urine Bacteria (Auto) (Negative) /HPF Urine Mucus /HPF 11/21/19 11/21/19 Range/Units 09:50 10:07 WBC (4.5-11.0) K/mm3 RBC (3.65-5.03) M/mm3 Hgb (10.1-14.3) gm/dl Hct (30.3-42.9) % MCV (79-97) fl MCH (28-32) pg MCHC (30-34) % RDW (13.2-15.2) % Plt Count (140-440) K/mm3 Lymph % (Auto) (13.4-35.0) % [place] % (Auto) (0.0-7.3) % Eos % (Auto) (0.0-4.3) % Baso % (Auto) (0.0-1.8) % Lymph # (1.2-5.4) K/mm3 [place] # (0.0-0.8) K/mm3 Eos # (0.0-0.4) K/mm3 Baso # (0.0-0.1) K/mm3 Seg Neutrophils % (40.0-70.0) % Seg Neutrophils # (1.8-7.7) K/mm3 Sodium (137-145) mmol/L Potassium (3.6-5.0) mmol/L Chloride (98-107) mmol/L Carbon Dioxide (22-30) mmol/L Anion Gap mmol/L BUN (7-17) mg/dL Creatinine (0.6-1.2) mg/dL Estimated GFR ml/min BUN/Creatinine Ratio % Glucose (65-100) mg/dL POC Glucose (70-105) Calcium (8.4-10.2) mg/dL Total Bilirubin (0.1-1.2) mg/dL AST (5-40) units/L ALT (7-56) units/L Alkaline Phosphatase (35-129) units/L Total Protein (6.3-8.2) g/dL Albumin (3.9-5) g/dL Albumin/Globulin Ratio % Lipase (13-60) units/L HCG, Qual Negative (Negative) Urine Color Yellow (Yellow) Urine Turbidity Clear (Clear) Urine pH 5.0 (5.0-7.0) Ur Specific [place] 1.026 (1.003-1.030) Urine Protein 30 mg/dl (Negative) mg/dL Urine Glucose (UA) 150 (Negative) mg/dL Urine Ketones Neg (Negative) mg/dL Urine Blood Lg (Negative) Urine Nitrite Neg (Negative) Urine Bilirubin Neg (Negative) Urine Urobilinogen < 2.0 (<2.0) mg/dL Ur Leukocyte Esterase Tr (Negative) Urine WBC (Auto) 15.0 H (0.0-6.0) /HPF Urine RBC (Auto) 5.0 (0.0-6.0) /HPF U Epithel Cells (Auto) 4.0 (0-13.0) /HPF Urine Bacteria (Auto) 1+ (Negative) /HPF Urine Mucus 1+ /HPF - Medical Decision Making Patient is a 28-year-old female presents emergency room with complaints of nausea vomiting that began a couple days ago. She states that she has approximately 3 episodes per day. She is able to tolerate p.o. intake. She states over the last couple of days that her blood glucose has been running high. She states that she talked to her primary care doctor who advised her to increase her insulin units. She states that she had not taken her blood sugar today to see what the value was. She states that she also has some mild lower abdominal cramping. She denies any diarrhea, fever, dysuria, dark urine, urinary frequency, hematemesis, hematochezia, melena. She denies any sick contacts, recent travel, recent antibiotics, water from a different source. She has a past medical history of diabetes and uses insulin. No allergies to medications. Last menstrual cycle 11/01/2019. Vitals are normal. No abdominal tenderness on exam, no rebound, no rigidity, no peritoneal signs, normal bowel sounds. Labs with blood sugar of 214, otherwise normal. UA shows evidence of UTI, there are no ketones present in the urine. Patient has no leukocytosis. Patient given 1 L fluids and Zofran and symptoms completely resolved and she was able to tolerate p.o. intake and was ready to go home. Patient given prescription for Keflex and Zofran. Advised patient Please take medication as prescribed. Please increase your water intake. Please follow-up with your primary care doctor. Return to emergency room for any worsening symptoms. Critical care attestation.: If time is entered above; I have spent that time in minutes in the direct care of this critically ill patient, excluding procedure time. ED Disposition Clinical Impression: Hyperglycemia UTI (urinary tract infection) Qualifiers: Urinary tract infection type: acute cystitis Hematuria presence: without hematuria Qualified Code(s): N30.00 - Acute cystitis without hematuria Nausea & vomiting Qualifiers: Vomiting type: unspecified Vomiting Intractability: non-intractable Qualified Code(s): R11.2 - Nausea with vomiting, unspecified Disposition: TO HOME OR SELFCARE Is pt being admited?: No Does the pt Need Aspirin: No Condition: Stable Instructions: Urinary Tract Infection in Women (ED), Gastroenteritis (ED) Additional Instructions: Please take medication as prescribed. Please increase your water intake. Please follow-up with your primary care doctor. Return to emergency room for any worsening symptoms. Prescriptions: cephALEXin [Keflex] 500 mg PO BID 7 Days #14 cap Ondansetron [Zofran Odt] 4 mg PO Q8HR PRN #10 tab.rapdis PRN Reason: Nausea And Vomiting Referrals: DENNIS HINOJOSA MD [Primary Care Provider] - 2-3 Days Forms: Work/School Release Form(ED) Time of Disposition: 11:05 Print Language: ARABIC
== END 2019-11-21 11:35 | disposition home or self-care (01) ==
LOC: ED 09:21
DX: R11.2 Nausea with vomiting, unspecified (principal); I10 Essential (primary) hypertension; Z79.4 Long term (current) use of insulin; Z79.899 Other long term (current) drug therapy
CPT/HCPCS: 36415; 80053; 81001; 82962; 83690; 84703; 85025; 87086; 96361; 96374; 99283; J2405; J7030

== ENCOUNTER 2020-01-29 11:02 | Emergency (ER) | payer SELFPAY ==
[2020-01-29 11:16] VITALS: BP 115/50
--- NOTE | 2020-01-29 12:15 | XRay Report ---
LEFT HUMERUS 2 VIEWS INDICATION / CLINICAL INFORMATION: left upper arm pain s/p fall COMPARISON: None available. FINDINGS: BONES / JOINT(S): No acute fracture or subluxation. No significant arthritis. SOFT TISSUES: No significant abnormality. ADDITIONAL FINDINGS: None. Signer Name: Tc Poon MD Signed: 01/29/2020 12:10 PM Workstation Name: [id number]
--- NOTE | 2020-01-29 12:19 | Emergency Department Report ---
ED Upper Extremity Inj HPI - General Chief Complaint: Extremity Injury, Upper Stated Complaint: LFT ARM FALL INJURY/PAIN Time Seen by Provider: 01/29/20 11:19 Source: patient Mode of arrival: Ambulatory Limitations: No Limitations - History of Present Illness Initial Comments: Patient is a 29-year-old female presents emergency room with complaints of a left upper arm injury that occurred yesterday. She states that the floor was wet and she accidentally slipped and fell and landed on her left upper arm. She states that since then she has had pain and some swelling. She denies ever injuring in the past. She denies any numbness or weakness. She has a past medical history of diabetes. No allergies to medications. Last menstrual cycle January 05. - Related Data Home Medications Medication Instructions Recorded Confirmed Last Taken Insulin Aspart Prot/Aspart(Nf) 15 units SQ TID 08/21/16 08/21/16 1 Day Ago [Novolog Mix 70/30] ~08/20/16 Insulin Glargine [Lantus VIAL] 40 units SQ HS 08/21/16 08/21/16 1 Day Ago ~08/20/16 Previous Rx's Medication Instructions Recorded Last Taken Type Sulfamethoxazole/Trimethoprim 1 each PO BID #20 tablet 08/21/16 Unknown Rx [Bactrim DS TAB] Insulin Detemir [Levemir VIAL] 40 unit SQ QHS #1 vial 10/31/16 Unknown Rx Insulin Lispro [HumaLOG VIAL] 15 units SQ AC #1 vial 10/31/16 Unknown Rx Sulfamethoxazole/Trimethoprim 1 each PO BID #14 tablet 10/31/16 Unknown Rx [Bactrim DS TAB] Promethazine [Phenergan TAB] 25 mg PO Q6HR PRN #20 tab 11/01/16 Unknown Rx Acetaminophen [Non-Aspirin Extra 500 mg PO Q6HR PRN #30 tablet 01/14/19 Unknown Rx Strength] Famotidine [Pepcid] 20 mg PO BID #10 tablet 01/14/19 Unknown Rx Ondansetron [Zofran Odt] 4 mg PO Q8HR PRN #20 tab.rapdis 01/14/19 Unknown Rx Ondansetron [Zofran Odt] 4 mg PO Q8HR PRN #10 tab.rapdis 11/21/19 Unknown Rx cephALEXin [Keflex] 500 mg PO BID 7 Days #14 cap 11/21/19 Unknown Rx Naproxen [EC-Naprosyn] 500 mg PO BID PRN #14 tablet. 01/29/20 Unknown Rx Allergies Allergy/AdvReac Type Severity Reaction Status Date / Time No Known Allergies Allergy Unverified 08/21/16 05:43 ED Review of Systems ROS: Stated complaint: LFT ARM FALL INJURY/PAIN Other details as noted in HPI Comment: All other systems reviewed and negative ED Past Medical Hx - Past Medical History Hx Diabetes: Yes (IDDM) - Surgical History Additional Surgical History: Tonsilectomy - Social History Smoking Status: Never Smoker Substance Use Type: None - Medications Home Medications: Home Medications Medication Instructions Recorded Confirmed Last Taken Type Insulin Aspart Prot/Aspart(Nf) 15 units SQ TID 08/21/16 08/21/16 1 Day Ago History [Novolog Mix 70/30] ~08/20/16 Insulin Glargine [Lantus VIAL] 40 units SQ HS 08/21/16 08/21/16 1 Day Ago History ~08/20/16 Sulfamethoxazole/Trimethoprim 1 each PO BID #20 tablet 08/21/16 Unknown Rx [Bactrim DS TAB] Insulin Detemir [Levemir VIAL] 40 unit SQ QHS #1 vial 10/31/16 Unknown Rx Insulin Lispro [HumaLOG VIAL] 15 units SQ AC #1 vial 10/31/16 Unknown Rx Sulfamethoxazole/Trimethoprim 1 each PO BID #14 tablet 10/31/16 Unknown Rx [Bactrim DS TAB] Promethazine [Phenergan TAB] 25 mg PO Q6HR PRN #20 tab 11/01/16 Unknown Rx Acetaminophen [Non-Aspirin Extra 500 mg PO Q6HR PRN #30 tablet 01/14/19 Unknown Rx Strength] Famotidine [Pepcid] 20 mg PO BID #10 tablet 01/14/19 Unknown Rx Ondansetron [Zofran Odt] 4 mg PO Q8HR PRN #20 tab.rapdis 01/14/19 Unknown Rx Ondansetron [Zofran Odt] 4 mg PO Q8HR PRN #10 tab.rapdis 11/21/19 Unknown Rx cephALEXin [Keflex] 500 mg PO BID 7 Days #14 cap 11/21/19 Unknown Rx Naproxen [EC-Naprosyn] 500 mg PO BID PRN #14 tablet. 01/29/20 Unknown Rx ED Physical Exam - General Limitations: No Limitations General appearance: alert, in no apparent distress - Head Head exam: Present: atraumatic, normocephalic - Eye Eye exam: Present: normal appearance, EOMI. Absent: periorbital swelling, periorbital tenderness - ENT ENT exam: Present: mucous membranes moist - Respiratory Respiratory exam: Absent: respiratory distress, accessory muscle use - Extremities Exam Extremities exam: Present: other (ttp to the left humerus region mostly in the muscles, there is ecchymosis present and mild edema, FROM of the LUE, neurovascularly intact, no obvious deformity) - Neurological Exam Neurological exam: Present: alert, oriented X3 - Psychiatric Psychiatric exam: Present: normal affect, normal mood - Skin Skin exam: Present: warm, dry ED Course Vital Signs 01/29/20 11:14 Temperature 98.5 F Pulse Rate 68 Respiratory 18 Rate Blood Pressure 115/50 O2 Sat by Pulse 99 Oximetry ED Medical Decision Making - Radiology Data Radiology results: report reviewed Ordering Physician: MADHU DREW Date of Service: 01/29/20 Procedure(s): XR humerus 2+V LT Accession Number(s): [id number] cc: MADHU DREW Fluoro Time In Minutes: LEFT HUMERUS 2 VIEWS INDICATION / CLINICAL INFORMATION: left upper arm pain s/p fall COMPARISON: None available. FINDINGS: BONES / JOINT(S): No acute fracture or subluxation. No significant arthritis. SOFT TISSUES: No significant abnormality. ADDITIONAL FINDINGS: None. Signer Name: Tc Poon MD Signed: 01/29/2020 12:10 PM Workstation Name: [id number] Transcribed By: ES Dictated By: Tc Poon MD Electronically Authenticated By: Tc Poon MD Signed Date/Time: 01/29/20 121 DD/ 09 TD/TT: - Medical Decision Making Patient is a 29-year-old female presents emergency room with complaints of a left upper arm injury that occurred yesterday. She states that the floor was wet and she accidentally slipped and fell and landed on her left upper arm. She states that since then she has had pain and some swelling. She denies ever injuring in the past. She denies any numbness or weakness. She has a past medical history of diabetes. No allergies to medications. Last menstrual cycle January 05. vitals are normal. on exam: ttp to the left humerus region mostly in the muscles, there is ecchymosis present and mild edema, FROM of the LUE, neurovascularly intact, no obvious deformity. XR left humerus: BONES / JOINT(S): No acute fracture or subluxation. No significant arthritis. SOFT TISSUES: No significant abnormality. ADDITIONAL FINDINGS: None. Examination likely related to muscle strain and contusion. Patient placed in Marlon wrap by nurse and remained neurovascularly intact. Patient given prescription for naproxen. Advised patient Please take medication as prescribed as needed. May use ice pack for 15 minutes at a time, rest, elevation of the arm. Please do not wear Marlon bandage too tightly and do not wear at night while sleeping. Follow-up with orthopedic doctor. Return to emergency room for any new or worsening symptoms. - Differential Diagnosis Strain, sprain, fracture, dislocation, contusion, tendinitis Critical care attestation.: If time is entered above; I have spent that time in minutes in the direct care of this critically ill patient, excluding procedure time. ED Disposition Clinical Impression: Pain of left humerus Contusion of left arm Qualifiers: Encounter type: initial encounter Qualified Code(s): S40.022A - Contusion of left upper arm, initial encounter Disposition: TO HOME OR SELFCARE Is pt being admited?: No Does the pt Need Aspirin: No Condition: Stable Instructions: Muscle Strain (ED), Contusion in Adults (ED), RICE Therapy (ED) Additional Instructions: Please take medication as prescribed as needed. May use ice pack for 15 minutes at a time, rest, elevation of the arm. Please do not wear Marlon bandage too tightly and do not wear at night while sleeping. Follow-up with orthopedic doctor. Return to emergency room for any new or worsening symptoms. Prescriptions: Naproxen [EC-Naprosyn] 500 mg PO BID PRN #14 tablet.dr BLED[place]E Reason: pain Referrals: PRIMARY CARE, [Primary Care Provider] - 2-3 Days CHARY GRADY MD [Staff Physician] - 2-3 Days [facility] [[facility]] - 2-3 Days Forms: Work/School Release Form(ED) Time of Disposition: 12:18 Print Language: RUSSIAN
== END 2020-01-29 12:32 | disposition home or self-care (01) ==
LOC: ED 11:02
DX: M79.602 Pain in left arm (principal); Z53.21 Procedure and treatment not carried out due to patient leaving prior to being seen by health care provider

== ENCOUNTER 2020-05-06 13:26 | Emergency (ER) | payer SELFPAY ==
[2020-05-06] MEDS ORDERED: ASPIRIN 325 MG TAB PO ONE (13:39)
[2020-05-06 14:17] LABS: Basophils # (Auto) 0.1 K/mm3 (0.0-0.1); Basophils % (Auto) 0.8 % (0.0-1.8); Eosinophils % (Auto) 0.3 % (0.0-4.3); Hematocrit 39.7 % (30.3-42.9); Hemoglobin 13.4 gm/dl (10.1-14.3); Lymphocytes % (Auto) 16.3 % (13.4-35.0); Mean Corpuscular HGB Conc 34 % (30-34); Mean Corpuscular Volume 87 fl (79-97); Monocytes # (Auto) 0.3 K/mm3 (0.0-0.8); Monocytes % (Auto) 2.6 % (0.0-7.3); Platelet Count 285 K/mm3 (140-440); Red Blood Count 4.57 M/mm3 (3.65-5.03); Red Cell Distribution Width 12.5 % (13.2-15.2)
[2020-05-06 14:35] LABS: BUN/Creatinine Ratio 16; Blood Urea Nitrogen 8 mg/dL (7-17); Calcium 9.2 mg/dL (8.4-10.2); Hemolysis Index 15
--- NOTE | 2020-05-06 14:48 | XRay Report ---
CHEST 2 VIEWS INDICATION / CLINICAL INFORMATION: Chest Pain. COMPARISON: None available. FINDINGS: SUPPORT DEVICES: None. HEART / MEDIASTINUM: No significant abnormality. LUNGS / PLEURA: No significant pulmonary or pleural abnormality. No pneumothorax. ADDITIONAL FINDINGS: No significant additional findings. IMPRESSION: No acute cardiopulmonary abnormality. Signer Name: Johnny Sam MD Signed: 05/06/2020 2:43 PM Workstation Name: [id number]
--- NOTE | 2020-05-06 16:09 | Emergency Department Report ---
<WILFREDO YADAV - Last Filed: 05/06/20 18:57> ED Chest Pain HPI - General Chief Complaint: Chest Pain Stated Complaint: CHEST PAIN/LIGHT HEADED/DIZZY PUI?: No Source: patient Mode of arrival: Ambulatory Limitations: No Limitations - History of Present Illness Initial Comments: 29-year-old morbid obese -[place] female presents to the emergency room for intermittent chest pain for the last week. Patient states that she has a feeling of headache lightheadedness shortness of breath. She reports she has had 2 - Covid test. She states that this time that she feels like she just going to pass out. Patient states that she wakes up with her heart racing. Patient reports she does have a history of hypertension and diabetes and did not take her insulin this morning. Patient reports that she had a couple of fruit, hot dog and orange juice today. She reports she usually takes Levemir 60 units nightly and 15 units with meals. Patient states that she was told she may have anxiety but she does not feel like she is under any increased stress. MD Complaint: chest pain Onset/Timin -: week(s) Onset: awoke with symptoms Pain Location: substernal Severity scale (0 -10): 7 Quality: pressure Improves With: nothing Worsens With: nothing re: nausea. denies: vomting, diaphoresis, dyspnea Other Symptoms: palpitations Treatments Prior to Arrival: none Aspirin use within the Past 7 Days: (0) No - Related Data Home Medications Medication Instructions Recorded Confirmed Last Taken Insulin Aspart Prot/Aspart(Nf) 15 units SQ TID 08/21/16 08/21/16 1 Day Ago [Novolog Mix 70/30] ~08/20/16 Insulin Glargine [Lantus VIAL] 40 units SQ HS 08/21/16 08/21/16 1 Day Ago ~08/20/16 Previous Rx's Medication Instructions Recorded Last Taken Type Sulfamethoxazole/Trimethoprim 1 each PO BID #20 tablet 08/21/16 Unknown Rx [Bactrim DS TAB] Insulin Detemir [Levemir VIAL] 40 unit SQ QHS #1 vial 10/31/16 Unknown Rx Insulin Lispro [HumaLOG VIAL] 15 units SQ AC #1 vial 10/31/16 Unknown Rx Sulfamethoxazole/Trimethoprim 1 each PO BID #14 tablet 10/31/16 Unknown Rx [Bactrim DS TAB] Promethazine [Phenergan TAB] 25 mg PO Q6HR PRN #20 tab 11/01/16 Unknown Rx Acetaminophen [Non-Aspirin Extra 500 mg PO Q6HR PRN #30 tablet 01/14/19 Unknown Rx Strength] Famotidine [Pepcid] 20 mg PO BID #10 tablet 01/14/19 Unknown Rx Ondansetron [Zofran Odt] 4 mg PO Q8HR PRN #20 tab.rapdis 01/14/19 Unknown Rx Ondansetron [Zofran Odt] 4 mg PO Q8HR PRN #10 tab.rapdis 11/21/19 Unknown Rx cephALEXin [Keflex] 500 mg PO BID 7 Days #14 cap 11/21/19 Unknown Rx Naproxen [EC-Naprosyn] 500 mg PO BID PRN #14 tablet. 01/29/20 Unknown Rx Allergies Allergy/AdvReac Type Severity Reaction Status Date / Time No Known Allergies Allergy Unverified 08/21/16 05:43 Heart Score - HEART Score History: Slightly suspicious EKG: Normal Age: < 45 Risk factors: 1-2 risk factors ED Review of Systems Comment: All other systems reviewed and negative ED Past Medical Hx - Past Medical History Previous Medical History?: Yes Hx Diabetes: Yes (IDDM) - Surgical History Past Surgical History?: Yes Additional Surgical History: Tonsilectomy - Social History Smoking Status: Never Smoker Substance Use Type: None - Medications Home Medications: Home Medications Medication Instructions Recorded Confirmed Last Taken Type Insulin Aspart Prot/Aspart(Nf) 15 units SQ TID 08/21/16 08/21/16 1 Day Ago History [Novolog Mix 70/30] ~08/20/16 Insulin Glargine [Lantus VIAL] 40 units SQ HS 08/21/16 08/21/16 1 Day Ago History ~08/20/16 Sulfamethoxazole/Trimethoprim 1 each PO BID #20 tablet 08/21/16 Unknown Rx [Bactrim DS TAB] Insulin Detemir [Levemir VIAL] 40 unit SQ QHS #1 vial 10/31/16 Unknown Rx Insulin Lispro [HumaLOG VIAL] 15 units SQ AC #1 vial 10/31/16 Unknown Rx Sulfamethoxazole/Trimethoprim 1 each PO BID #14 tablet 10/31/16 Unknown Rx [Bactrim DS TAB] Promethazine [Phenergan TAB] 25 mg PO Q6HR PRN #20 tab 11/01/16 Unknown Rx Acetaminophen [Non-Aspirin Extra 500 mg PO Q6HR PRN #30 tablet 01/14/19 Unknown Rx Strength] Famotidine [Pepcid] 20 mg PO BID #10 tablet 01/14/19 Unknown Rx Ondansetron [Zofran Odt] 4 mg PO Q8HR PRN #20 tab.rapdis 01/14/19 Unknown Rx Ondansetron [Zofran Odt] 4 mg PO Q8HR PRN #10 tab.rapdis 11/21/19 Unknown Rx cephALEXin [Keflex] 500 mg PO BID 7 Days #14 cap 11/21/19 Unknown Rx Naproxen [EC-Naprosyn] 500 mg PO BID PRN #14 tablet.dr 01/29/20 Unknown Rx ED Physical Exam - General Limitations: No Limitations General appearance: alert, in no apparent distress - Head Head exam: Present: atraumatic, normocephalic - Eye Eye exam: Present: normal appearance - ENT ENT exam: Present: mucous membranes moist - Neck Neck exam: Present: normal inspection - Respiratory Respiratory exam: Present: normal lung sounds bilaterally. Absent: respiratory distress - Cardiovascular Cardiovascular Exam: Present: regular rate, normal rhythm. Absent: systolic murmur, diastolic murmur, rubs, gallop - GI/Abdominal GI/Abdominal exam: Present: soft, normal bowel sounds - Extremities Exam Extremities exam: Present: normal inspection - Back Exam Back exam: Present: normal inspection - Neurological Exam Neurological exam: Present: alert, oriented X3 - Psychiatric Psychiatric exam: Present: normal affect, normal mood - Skin Skin exam: Present: warm, dry, intact, normal color. Absent: rash HOLDEN score - Holden Score Age > 65: (0) No Aspirin use within the Past 7 Days: (0) No 3 or more CAD Risk Factors: (1) Yes 2 or more Angina events in past 24 hrs: (1) Yes Known CAD with more than 50% Stenosis: (0) No Elevated Cardiac Markers: (0) No ST Deviation Greater than 0.5mm: (0) No HOLDEN Score: 2 ED Medical Decision Making - Lab Data Result diagrams: 05/06/20 14:00 05/06/20 14:00 - EKG Data EKG shows normal: sinus rhythm Rate: normal - Radiology Data Radiology results: report reviewed Patient: ARIELA NDIAYE MR#: [id number] : 1990 Acct:[id number] Age/Sex: 29 / F ADM Date: 05/06/20 Loc: ED Attending Dr: Ordering Physician: AKBAR VICK MD Date of Service: 05/06/20 Procedure(s): XR chest routine 2V Accession Number(s): [id number] cc: ED MD NAVA Fluoro Time In Minutes: CHEST 2 VIEWS INDICATION / CLINICAL INFORMATION: Chest Pain. COMPARISON: None available. FINDINGS: SUPPORT DEVICES: None. HEART / MEDIASTINUM: No significant abnormality. LUNGS / PLEURA: No significant pulmonary or pleural abnormality. No pneumothorax . ADDITIONAL FINDINGS: No significant additional findings. IMPRESSION: No acute cardiopulmonary abnormality. Signer Name: Meaghan Sam MD Signed: 05/06/2020 2:43 PM Workstation Name: [id number] Transcribed By: SS Dictated By: MEAGHAN SAM Electronically Authenticated By: MEAGHAN SAM Signed Date/Time: 05/06/201442 DD/ 42 TD/TT: - Medical Decision Making 29-year-old morbid obese -[place] female presents to the emergency room for intermittent chest pain for the last week. Patient states that she has a feeling of headache lightheadedness shortness of breath. She reports she has had 2 - Covid test. She states that this time that she feels like she just going to pass out. Patient states that she wakes up with her heart racing. Patient reports she does have a history of hypertension and diabetes and did not take her insulin this morning. Patient reports that she had a couple of fruit, hot dog and orange juice today. She reports she usually takes Levemir 60 units nightly and 15 units with meals. Patient states that she was told she may have anxiety but she does not feel like she is under any increased stress. Cardiac work-up. Elevated glucose IV fluids administered waiting on second troponin ED Disposition Clinical Impression: Chest pain, Insulin dependent diabetes mellitus Disposition: DC-01 TO HOME OR SELFCARE Is pt being admited?: No Does the pt Need Aspirin: No Condition: Stable Instructions: Nonspecific Chest Pain, Adult, [id number], Chest Pain (ED), Diabetes Mellitus Type 2 in Adults (ED) Referrals: JAXSON BENSON MD [Staff Physician] - 3-5 Days ARTURO TAVAREZ MD [Staff Physician] - 3-5 Days VIRGINIA MEDRANO FNP [Referring] - 3-5 Days BISI LEE MD [Staff Physician] - 3-5 Days [facility] [Provider Group] - 3-5 Days LUIS DAVISON MD [Staff Physician] - 3-5 Days WES SOTO MD [Referring] - 3-5 Days Forms: Work/School Release Form(ED) <LENA ROSAS - Last Filed: 05/06/20 19:31> Heart Score - HEART Score History: Slightly suspicious EKG: Normal Age: < 45 Risk factors: 1-2 risk factors Troponin: < normal limit HEART Score: 1 ED Review of Systems ROS: Stated complaint: CHEST PAIN/LIGHT HEADED/DIZZY Other details as noted in HPI ED Course Vital Signs 05/06/20 13:37 Temperature 98.1 F Pulse Rate 67 Respiratory 16 Rate Blood Pressure 160/51 [Right] O2 Sat by Pulse 98 Oximetry ED Medical Decision Making - Lab Data Result diagrams: 05/06/20 14:00 05/06/20 14:00 Laboratory Results - last 24 hr 05/06/20 05/06/20 05/06/20 14:00 14:00 18:14 WBC 12.2 H RBC 4.57 Hgb 13.4 Hct 39.7 MCV 87 MCH 29 MCHC 34 RDW 12.5 L Plt Count 285 Lymph % (Auto) 16.3 [place] % (Auto) 2.6 Eos % (Auto) 0.3 Baso % (Auto) 0.8 Lymph # (Auto) 2.0 [place] # (Auto) 0.3 Eos # (Auto) 0.0 Baso # (Auto) 0.1 Seg Neutrophils % 80.0 H Seg Neutrophils # 9.8 H VBG pH Sodium 133 L Potassium 4.1 Chloride 98.7 Carbon Dioxide 25 Anion Gap 13 BUN 8 Creatinine 0.5 L Estimated GFR > 60 BUN/Creatinine Ratio 16 Glucose 376 H POC Glucose Calcium 9.2 Troponin T < 0.010 < 0.010 05/06/20 05/06/20 18:14 19:15 WBC RBC Hgb Hct MCV MCH MCHC RDW Plt Count Lymph % (Auto) [place] % (Auto) Eos % (Auto) Baso % (Auto) Lymph # (Auto) [place] # (Auto) Eos # (Auto) Baso # (Auto) Seg Neutrophils % Seg Neutrophils # VBG pH 7.367 Sodium Potassium Chloride Carbon Dioxide Anion Gap BUN Creatinine Estimated GFR BUN/Creatinine Ratio Glucose POC Glucose 231 H Calcium Troponin T - EKG Data -: EKG Interpreted by Me EKG shows normal: sinus rhythm, axis, intervals, QRS complexes, ST-T waves Rate: normal - EKG Data Interpretation: normal EKG 05/06/20 19:31 EKG obtained 1344 EKG interpreted by wv Normal sinus rhythm normal rate normal axis normal intervals no ST elevation no ST-T signs of ischemia normal EKG - Medical Decision Making Chest pain atypical for ACS, PERC negative for PE. Troponin x2 -. No evidence of pneumonia or pneumothorax on chest radiograph. Patient is discharged home. Critical care attestation.: If time is entered above; I have spent that time in minutes in the direct care of this critically ill patient, excluding procedure time.
[2020-05-06] MEDS ORDERED: SODIUM CHLORIDE 0.9% 1000 ML 1,000 ML IV ONE (16:18)
[2020-05-06] MEDS ORDERED: ONDANSETRON 4 MG/2 ML INJ IV ONE (18:17)
[2020-05-06] MEDS ORDERED: KETOROLAC 30 MG/1 ML INJ IV ONE (19:07)
[2020-05-06 19:58] VITALS: BP 128/84
== END 2020-05-06 19:57 | disposition home or self-care (01) ==
LOC: ED 13:26
DX: R07.89 Other chest pain (principal); E11.9 Type 2 diabetes mellitus without complications; Z79.4 Long term (current) use of insulin; Z79.899 Other long term (current) drug therapy
CPT/HCPCS: 36415; 71046; 80048; 82805; 82962; 84484; 85025; 93005; 96361; 96374; 96375; 99284; J1885; J2405; J7030

== ENCOUNTER 2020-09-04 15:14 | Emergency (ER) | payer BC ==
[2020-09-04 16:34] LABS: Basophils % (Auto) 0.3 % (0.0-1.8); Eosinophils # (Auto) 0.1 K/mm3 (0.0-0.4); Eosinophils % (Auto) 0.9 % (0.0-4.3); Hematocrit 36.6 % (30.3-42.9); Hemoglobin 12.5 gm/dl (10.1-14.3); Lymphocytes # (Auto) 2.4 K/mm3 (1.2-5.4); Lymphocytes % (Auto) 30.3 % (13.4-35.0); Mean Corpuscular HGB Conc 34 % (30-34); Mean Corpuscular Volume 88 fl (79-97); Monocytes # (Auto) 0.4 K/mm3 (0.0-0.8); Monocytes % (Auto) 4.5 % (0.0-7.3); Platelet Count 294 K/mm3 (140-440); Red Blood Count 4.18 M/mm3 (3.65-5.03); Red Cell Distribution Width 12.7 % (13.2-15.2)
[2020-09-04 16:49] LABS: Alanine Aminotransferase 22 units/L (7-56); Albumin 3.7 g/dL (3.9-5); BUN/Creatinine Ratio 25; Blood Urea Nitrogen 10 mg/dL (7-17); Calcium 8.8 mg/dL (8.4-10.2); Hemolysis Index 6
--- NOTE | 2020-09-04 17:33 | Event Note ---
ED Screening Note Date of service: 09/04/20 Time: 17:32 ED Screening Note: 29-year-old female patient with history of diabetes presents to emergency department with complaints of fatigue, dizziness, nausea, and elevated blood glucose readings for approximately 2 weeks. Patient states she was recently treated with antibiotic for a soft tissue infection. She has been struggling to control her blood glucose levels since completing the antibiotics. Patient has been hospitalized for diabetes on previous occasions. General: Awake, appropriately interactive, no acute distress. Neck: Supple. Full range of motion intact. Cardiovascular: Normal peripheral perfusion. Pulmonary: No respiratory distress. Patient is speaking normally without use of accessory muscles. Skin: No apparent rashes or lesions. Neurological: No facial asymmetry. Speech is clear. Follows commands. Patient is alert and oriented. Musculoskeletal: Moves all four extremities spontaneously with normal range of motion. Psych: Cooperative. Appropriate mood and affect. I have greeted and performed a focused rapid initial assessment of this patient. A comprehensive ED assessment and evaluation of the patient, analysis of all test results, and completion of the medical decision-making process will be conducted by additional ED providers. This initial assessment/diagnostic orders/clinical plan/treatment(s) is/are subject to change based on patients health status, clinical progression and re-assessment. Further treatment and workup at subsequent clinical provider's discretion. Patient/guardian urged not to elope from the ED as their condition may be serious if not clinically assessed and managed.
[2020-09-04 18:38] LABS: Bilirubin,Urine NEG (Negative); Blood,Urine NEG (Negative); Color,Urine Yellow (Yellow); Protein,Urine <15 mg/dL mg/dL (Negative); Urobilinogen,Urine < 2.0 mg/dL (<2.0); WBC,Urine < 1.0 /HPF (0.0-6.0)
[2020-09-04 18:42] LABS: HCG Qualitative,Urine Negative (Negative)
[2020-09-04] MEDS ORDERED: ONDANSETRON 4 MG/2 ML INJ IV ONE (19:13)
[2020-09-04] MEDS ORDERED: SODIUM CHLORIDE 0.9% 1000 ML 1,000 ML IV ONE ×2 (19:13→22:29)
--- NOTE | 2020-09-04 20:22 | Emergency Department Report ---
ED N/V/D HPI - General Chief complaint: Hyperglycemia Stated complaint: ELEVATED BLOOD GLUCOSE, N/V, TIRED Time Seen by Provider: 09/04/20 19:10 Source: patient Mode of arrival: Ambulatory Limitations: No Limitations - History of Present Illness Initial comments: This is a 29-year-old female nontoxic, well nourished in appearance, no acute signs of distress presents to the ED with c/o of nausea, fatigue, and elevated BG x 2weeks. Patient stated she is compliant with her insulin for her diabetes. Patient otherwise denies any other complaints or symptoms. Patient denies any abdominal pain or vomiting. Patient denies any abdominal pain, chest pain, short of breath, fever, chills, headache, stiff neck, numbness or tingling. Patient denies any diarrhea or constipation. Denies any blood in stool. Patient stated she currently finished antibiotics for cellulitis. Patient denies any recent travels. MD complaint: nausea -: week(s) Associated Abdominal Pain: No Pain Scale: 0 Consistency: intermittent Improves with: none Worsens with: none Associated Symptoms: nausea/vomiting. denies: myalgias, chest pain, cough, diaphoresis, fever/chills, headaches, loss of appetite, malaise, rash, dysuria, shortness of breath, syncope, weakness - Related Data Home Medications Medication Instructions Recorded Confirmed Last Taken Insulin Aspart Prot/Aspart(Nf) 15 units SQ TID 08/21/16 08/21/16 1 Day Ago [Novolog Mix 70/30] ~08/20/16 Insulin Glargine [Lantus VIAL] 40 units SQ HS 08/21/16 08/21/16 1 Day Ago ~08/20/16 Previous Rx's Medication Instructions Recorded Last Taken Type Sulfamethoxazole/Trimethoprim 1 each PO BID #20 tablet 08/21/16 Unknown Rx [Bactrim DS TAB] Insulin Detemir [Levemir VIAL] 40 unit SQ QHS #1 vial 10/31/16 Unknown Rx Insulin Lispro [HumaLOG VIAL] 15 units SQ AC #1 vial 10/31/16 Unknown Rx Sulfamethoxazole/Trimethoprim 1 each PO BID #14 tablet 10/31/16 Unknown Rx [Bactrim DS TAB] Promethazine [Phenergan TAB] 25 mg PO Q6HR PRN #20 tab 11/01/16 Unknown Rx Acetaminophen [Non-Aspirin Extra 500 mg PO Q6HR PRN #30 tablet 01/14/19 Unknown Rx Strength] Famotidine [Pepcid] 20 mg PO BID #10 tablet 01/14/19 Unknown Rx Ondansetron [Zofran Odt] 4 mg PO Q8HR PRN #20 tab.rapdis 01/14/19 Unknown Rx Ondansetron [Zofran Odt] 4 mg PO Q8HR PRN #10 tab.rapdis 11/21/19 Unknown Rx cephALEXin [Keflex] 500 mg PO BID 7 Days #14 cap 11/21/19 Unknown Rx Naproxen [EC-Naprosyn] 500 mg PO BID PRN #14 tablet.dr 01/29/20 Unknown Rx Ondansetron [Zofran Odt] 4 mg PO Q8HR PRN #12 tab.rapdis 09/05/20 Unknown Rx Allergies Allergy/AdvReac Type Severity Reaction Status Date / Time No Known Allergies Allergy Unverified 08/21/16 05:43 ED Review of Systems ROS: Stated complaint: ELEVATED BLOOD GLUCOSE, N/V, TIRED Other details as noted in HPI Comment: All other systems reviewed and negative Constitutional: denies: chills, fever Eyes: denies: eye pain, eye discharge, vision change ENT: denies: ear pain, throat pain Respiratory: denies: cough, shortness of breath, wheezing Cardiovascular: denies: chest pain, palpitations Endocrine: no symptoms reported Gastrointestinal: nausea. denies: abdominal pain, vomiting, diarrhea, constipation, hematemesis, melena, hematochezia Genitourinary: denies: urgency, dysuria, discharge Musculoskeletal: denies: back pain, joint swelling, arthralgia Skin: denies: rash, lesions Neurological: denies: headache, weakness, paresthesias Psychiatric: denies: anxiety, depression Hematological/Lymphatic: denies: easy bleeding, easy bruising ED Past Medical Hx - Past Medical History Previous Medical History?: Yes Hx Diabetes: Yes (IDDM) - Surgical History Past Surgical History?: Yes Additional Surgical History: Tonsilectomy - Social History Smoking Status: Never Smoker Substance Use Type: None - Medications Home Medications: Home Medications Medication Instructions Recorded Confirmed Last Taken Type Insulin Aspart Prot/Aspart(Nf) 15 units SQ TID 08/21/16 08/21/16 1 Day Ago His tory [Novolog Mix 70/30] ~08/20/16 Insulin Glargine [Lantus VIAL] 40 units SQ HS 08/21/16 08/21/16 1 Day Ago History ~08/20/16 Sulfamethoxazole/Trimethoprim 1 each PO BID #20 tablet 08/21/16 Unknown Rx [Bactrim DS TAB] Insulin Detemir [Levemir VIAL] 40 unit SQ QHS #1 vial 10/31/16 Unknown Rx Insulin Lispro [HumaLOG VIAL] 15 units SQ AC #1 vial 10/31/16 Unknown Rx Sulfamethoxazole/Trimethoprim 1 each PO BID #14 tablet 10/31/16 Unknown Rx [Bactrim DS TAB] Promethazine [Phenergan TAB] 25 mg PO Q6HR PRN #20 tab 11/01/16 Unknown Rx Acetaminophen [Non-Aspirin Extra 500 mg PO Q6HR PRN #30 tablet 01/14/19 Unknown Rx Strength] Famotidine [Pepcid] 20 mg PO BID #10 tablet 01/14/19 Unknown Rx Ondansetron [Zofran Odt] 4 mg PO Q8HR PRN #20 tab.rapdis 01/14/19 Unknown Rx Ondansetron [Zofran Odt] 4 mg PO Q8HR PRN #10 tab.rapdis 11/21/19 Unknown Rx cephALEXin [Keflex] 500 mg PO BID 7 Days #14 cap 11/21/19 Unknown Rx Naproxen [EC-Naprosyn] 500 mg PO BID PRN #14 tablet.dr 01/29/20 Unknown Rx Ondansetron [Zofran Odt] 4 mg PO Q8HR PRN #12 tab.rapdis 09/05/20 Unknown Rx ED Physical Exam - General Limitations: No Limitations General appearance: alert, in no apparent distress - Head Head exam: Present: atraumatic, normocephalic - Eye Eye exam: Present: normal appearance - ENT ENT exam: Present: normal exam, normal orophraynx - Neck Neck exam: Present: normal inspection, full ROM. Absent: tenderness, meningismus, lymphadenopathy - Respiratory Respiratory exam: Present: normal lung sounds bilaterally. Absent: respiratory distress, wheezes, rales, rhonchi, stridor, chest wall tenderness, accessory muscle use, decreased breath sounds, prolonged expiratory - Cardiovascular Cardiovascular Exam: Present: regular rate, normal rhythm, normal heart sounds. Absent: bradycardia, tachycardia, irregular rhythm, systolic murmur, diastolic murmur, rubs, gallop - GI/Abdominal GI/Abdominal exam: Present: soft, normal bowel sounds. Absent: distended, tenderness, guarding, rebound, rigid, diminished bowel sounds - Extremities Exam Extremities exam: Present: normal inspection, full ROM, normal capillary refill. Absent: tenderness - Back Exam Back exam: Present: normal inspection, full ROM. Absent: tenderness, CVA tenderness (R), CVA tenderness (L), muscle spasm, paraspinal tenderness, v ertebral tenderness, rash noted - Neurological Exam Neurological exam: Present: alert, oriented X3, normal gait - Psychiatric Psychiatric exam: Present: normal affect, normal mood - Skin Skin exam: Present: warm, dry, intact, normal color. Absent: rash ED Course Vital Signs 09/04/20 09/05/20 15:24 00:18 Temperature 98.2 F 98.2 F Pulse Rate 69 68 Respiratory 18 16 Rate Blood Pressure 127/61 Blood Pressure 142/65 [Left] O2 Sat by Pulse 100 100 Oximetry - Reevaluation(s) Reevaluation #1: 09/04/20 20:25 Patient is speaking in full sentences with no signs of distress noted. ED Medical Decision Making - Lab Data Result diagrams: 09/04/20 16:05 09/04/20 16:05 Lab Results 09/04/20 09/04/20 09/04/20 Range/Units 15:26 16:05 16:05 WBC 7.8 (4.5-11.0) K/mm3 RBC 4.18 (3.65-5.03) M/mm3 Hgb 12.5 (10.1-14.3) gm/dl Hct 36.6 (30.3-42.9) % MCV 88 (79-97) fl MCH 30 (28-32) pg MCHC 34 (30-34) % RDW 12.7 L (13.2-15.2) % Plt Count 294 (140-440) K/mm3 Lymph % (Auto) 30.3 (13.4-35.0) % Rich % (Auto) 4.5 (0.0-7.3) % Eos % (Auto) 0.9 (0.0-4.3) % Baso % (Auto) 0.3 (0.0-1.8) % Lymph # (Auto) 2.4 (1.2-5.4) K/mm3 Rich # (Auto) 0.4 (0.0-0.8) K/mm3 Eos # (Auto) 0.1 (0.0-0.4) K/mm3 Baso # (Auto) 0.0 (0.0-0.1) K/mm3 Seg Neutrophils % 64.0 (40.0-70.0) % Seg Neutrophils # 5.0 (1.8-7.7) K/mm3 VBG pH (7.320-7.420) Sodium 135 L (137-145) mmol/L Potassium 4.2 (3.6-5.0) mmol/L Chloride 100.8 (98-107) mmol/L Carbon Dioxide 25 (22-30) mmol/L Anion Gap 13 mmol/L BUN 10 (7-17) mg/dL Creatinine 0.4 L (0.6-1.2) mg/dL Estimated GFR > 60 ml/min BUN/Creatinine Ratio 25 % Glucose 244 H (65-100) mg/dL POC Glucose 264 H (70-105) mg/dL Calcium 8.8 (8.4-10.2) mg/dL Magnesium (1.7-2.3) mg/dL Total Bilirubin 0.70 (0.1-1.2) mg/dL AST 16 (5-40) units/L ALT 22 (7-56) units/L Alkaline Phosphatase 77 (35-129) units/L Total Protein 6.9 (6.3-8.2) g/dL Albumin 3.7 L (3.9-5) g/dL Albumin/Globulin Ratio 1.2 % Lipase 11 L (13-60) units/L Urine Color (Yellow) Urine Turbidity (Clear) Urine pH (5.0-7.0) Ur Specific [place] (1.003-1.030) Urine Protein (Negative) mg/dL Urine Glucose (UA) (Negative) mg/dL Urine Ketones (Negative) mg/dL Urine Blood (Negative) Urine Nitrite (Negative) Urine Bilirubin (Negative) Urine Urobilinogen (<2.0) mg/dL Ur Leukocyte Esterase (Negative) Urine WBC (Auto) (0.0-6.0) /HPF Urine RBC (Auto) (0.0-6.0) /HPF U Epithel Cells (Auto) (0-13.0) /HPF Urine HCG, Qual (Negative) 09/04/20 09/04/20 09/04/20 Range/Units 16:05 16:05 18:17 WBC (4.5-11.0) K/mm3 RBC (3.65-5.03) M/mm3 Hgb (10.1-14.3) gm/dl Hct (30.3-42.9) % MCV (79-97) fl MCH (28-32) pg MCHC (30-34) % RDW (13.2-15.2) % Plt Count (140-440) K/mm3 Lymph % (Auto) (13.4-35.0) % Rich % (Auto) (0.0-7.3) % Eos % (Auto) (0.0-4.3) % Baso % (Auto) (0.0-1.8) % Lymph # (Auto) (1.2-5.4) K/mm3 Rich # (Auto) (0.0-0.8) K/mm3 Eos # (Auto) (0.0-0.4) K/mm3 Baso # (Auto) (0.0-0.1) K/mm3 Seg Neutrophils % (40.0-70.0) % Seg Neutrophils # (1.8-7.7) K/mm3 VBG pH 7.381 (7.320-7.420) Sodium (137-145) mmol/L Potassium (3.6-5.0) mmol/L Chloride (98-107) mmol/L Carbon Dioxide (22-30) mmol/L Anion Gap mmol/L BUN (7-17) mg/dL Creatinine (0.6-1.2) mg/dL Estimated GFR ml/min BUN/Creatinine Ratio % Glucose (65-100) mg/dL POC Glucose (70-105) mg/dL Calcium (8.4-10.2) mg/dL Magnesium 2.00 (1.7-2.3) mg/dL Total Bilirubin (0.1-1.2) mg/dL AST (5-40) units/L ALT (7-56) units/L Alkaline Phosphatase (35-129) units/L Total Protein (6.3-8.2) g/dL Albumin (3.9-5) g/dL Albumin/Globulin Ratio % Lipase (13-60) units/L Urine Color Yellow (Yellow) Urine Turbidity Clear (Clear) Urine pH 6.0 (5.0-7.0) Ur Specific [place] 1.025 (1.003-1.030) Urine Protein <15 mg/dl (Negative) mg/dL Urine Glucose (UA) >=500 (Negative) mg/dL Urine Ketones Neg (Negative) mg/dL Urine Blood Neg (Negative) Urine Nitrite Neg (Negative) Urine Bilirubin Neg (Negative) Urine Urobilinogen < 2.0 (<2.0) mg/dL Ur Leukocyte Esterase Neg (Negative) Urine WBC (Auto) < 1.0 (0.0-6.0) /HPF Urine RBC (Auto) 3.0 (0.0-6.0) /HPF U Epithel Cells (Auto) 1.0 (0-13.0) /HPF Urine HCG, Qual Negative (Negative) - EKG Data 09/05/20 00:20 Normal sinus bradycardia [address] or T wave abnormalities. Reviewed and signed by MD. - Medical Decision Making This is a 29-year-old female that presents with nausea with uncontrolled hyperglycemia. Patient is stable and was examined by me. Negative signs of symptoms of appendicitis or acute abdomen. Labs obtained. UA obtained. Vital signs are stable prior to discharge. Patient received medical treatment in the ED which patient stated symptoms has resolved and subsided. A by mouth challenge has been obtained and patient tolerated well with no nausea vomiting. Blood glucose decreased to 220 prior to discharge. Patient was also instructed to Follow-up with a primary care and general surgeon doctor in 3-5 days or if symptoms worsen and continue return to emergency room as soon as possible. At time of discharge, the patient does not seem toxic or ill in appearance. No acute signs of distress noted. Patient agrees to discharge treatment plan of care. No further questions noted by the patient. Critical care attestation.: If time is entered above; I have spent that time in minutes in the direct care of this critically ill patient, excluding procedure time. ED Disposition Clinical Impression: Hyperglycemia, Nausea Disposition: DC- TO HOME OR SELFCARE Is pt being admited?: No Does the pt Need Aspirin: No Condition: Stable Instructions: Hyperglycemia, Nausea and Vomiting, Adult, Hypertension (ED) Additional Instructions: Follow-up with a primary care doctor in 3-5 days or if symptoms worsen and continue return to emergency room as soon as possible. Prescriptions: Ondansetron [Zofran Odt] 4 mg PO Q8HR PRN #12 tab.rapdis PRN Reason: Nausea Referrals: PRIMARY CARE, [Primary Care Provider] - 3-5 Days ARTURO TAVAREZ MD [Staff Physician] - 3-5 Days KWAKU PATRICK DO [Staff Physician] - 3-5 Days Forms: Work/School Release Form(ED) Time of Disposition: 00:17
[2020-09-04] MEDS ORDERED: INSULIN REGULAR, HUMAN 100 UNITS/1 ML IV ONE (22:29)
[2020-09-05 00:19] VITALS: BP 142/65
--- NOTE | 2020-09-05 10:40 | Electrocardiograph Report ---
[facility] Test Date: 2020-09-04 Test Time: 17:51:33 Pat Name: ARIELA NDIAYE Department: Room: Gender: F Pharmacy Sales Assistant: STEVEN : 1990 Requested By: DEVANG LEOS Order Number: [id number] Reading MD: Cachorro Dye Measurements Intervals [place] Rate: 56 P: 3 [place]: 148 QRS: 14 QRSD: 86 T: 40 QT: 434 QTc: 420 Interpretive Statements Sinus bradycardia No previous ECG available for comparison Electronically Signed On 09-05-2020 10:39:40 EDT by Cachorro Dye
== END 2020-09-05 00:43 | disposition home or self-care (01) ==
LOC: ED 15:14
DX: E11.65 Type 2 diabetes mellitus with hyperglycemia (principal); R11.0 Nausea; Z90.89 Acquired absence of other organs; Z79.4 Long term (current) use of insulin; Z79.899 Other long term (current) drug therapy
CPT/HCPCS: 36415; 80053; 81001; 81025; 82805; 82962; 83690; 83735; 85025; 93005; 96361; 96374; 96375; 99284; J2405; J7030; J1815

== ENCOUNTER 2021-07-15 11:36 | Emergency (ER) | payer SELFPAY | END 2021-07-15 16:30 | disposition left against medical advice (07) | LOC: ED 11:36 | DX: O20.9 Hemorrhage in early pregnancy, unspecified (principal); Z3A.16 16 weeks gestation of pregnancy; Z53.21 Procedure and treatment not carried out due to patient leaving prior to being seen by health care provider ==

== ENCOUNTER 2021-07-15 14:22 | Emergency (ER) | payer SELFPAY ==
[2021-07-15 15:13] VITALS: BP 142/67
--- NOTE | 2021-07-15 16:46 | Emergency Department Report ---
ED Abdominal Pain HPI - General Chief Complaint: Abdominal Pain Stated Complaint: ABD PAIN/BLEEDING Source: patient Mode of arrival: Ambulatory Limitations: No Limitations - History of Present Illness Initial Comments: 30-year-old black female with no past medical history presents to the emergency department for evaluation of heavy vaginal bleeding. She states that 1 month ago she had a miscarriage, bled for 7 days, but never followed up with her primary care provider or [facility]. She states that 3 days ago she started to have severe abdominal pain along with heavy vaginal bleeding with clots. She denies dizziness, weakness, fever, dysuria. MD Complaint: abdominal pain -: days(s) (3) Location: suprapubic Radiation: none Migration to: no migration Severity scale (0 -10): 8 Quality: cramping Consistency: constant Associated Symptoms: denies: nausea, vomiting, diarrhea, fever, chills, dysuria, hematemesis, hematochezia, melena, hematuria, anorexia, syncope - Related Data LMP (females 10-50): 1 month Home Medications Medication Instructions Recorded Confirmed Last Taken Insulin Aspart Prot/Aspart(Nf) 15 units SQ TID 08/21/16 08/21/16 1 Day Ago [Novolog Mix 70/30] ~08/20/16 Insulin Glargine [Lantus VIAL] 40 units SQ HS 08/21/16 08/21/16 1 Day Ago ~08/20/16 Previous Rx's Medication Instructions Recorded Last Taken Type Sulfamethoxazole/Trimethoprim 1 each PO BID #20 tablet 08/21/16 Unknown Rx [Bactrim DS TAB] Insulin Detemir [Levemir VIAL] 40 unit SQ QHS #1 vial 10/31/16 Unknown Rx Insulin Lispro [HumaLOG VIAL] 15 units SQ AC #1 vial 10/31/16 Unknown Rx Sulfamethoxazole/Trimethoprim 1 each PO BID #14 tablet 10/31/16 Unknown Rx [Bactrim DS TAB] Promethazine [Phenergan TAB] 25 mg PO Q6HR PRN #20 tab 11/01/16 Unknown Rx Acetaminophen [Non-Aspirin Extra 500 mg PO Q6HR PRN #30 tablet 01/14/19 Unknown Rx Strength] Famotidine [Pepcid] 20 mg PO BID #10 tablet 01/14/19 Unknown Rx Ondansetron [Zofran Odt] 4 mg PO Q8HR PRN #20 tab.rapdis 01/14/19 Unknown Rx Ondansetron [Zofran Odt] 4 mg PO Q8HR PRN #10 tab.rapdis 11/21/19 Unknown Rx cephALEXin [Keflex] 500 mg PO BID 7 Days #14 cap 11/21/19 Unknown Rx Naproxen [EC-Naprosyn] 500 mg PO BID PRN #14 tablet 01/29/20 Unknown Rx Ondansetron [Zofran Odt] 4 mg PO Q8HR PRN #12 tab.rapdis 09/05/20 Unknown Rx Allergies Allergy/AdvReac Type Severity Reaction Status Date / Time No Known Allergies Allergy Unverified 08/21/16 05:43 ED Review of Systems ROS: Stated complaint: ABD PAIN/BLEEDING Other details as noted in HPI ED Past Medical Hx - Past Medical History Hx Diabetes: Yes (IDDM) - Surgical History Additional Surgical History: Tonsilectomy - Social History Smoking Status: Never Smoker Substance Use Type: None - Medications Home Medications: Home Medications Medication Instructions Recorded Confirmed Last Taken Type Insulin Aspart Prot/Aspart(Nf) 15 units SQ TID 08/21/16 08/21/16 1 Day Ago History [Novolog Mix 70/30] ~08/20/16 Insulin Glargine [Lantus VIAL] 40 units SQ HS 08/21/16 08/21/16 1 Day Ago History ~08/20/16 Sulfamethoxazole/Trimethoprim 1 each PO BID #20 tablet 08/21/16 Unknown Rx [Bactrim DS TAB] Insulin Detemir [Levemir VIAL] 40 unit SQ QHS #1 vial 10/31/16 Unknown Rx Insulin Lispro [HumaLOG VIAL] 15 units SQ AC #1 vial 10/31/16 Unknown Rx Sulfamethoxazole/Trimethoprim 1 each PO BID #14 tablet 10/31/16 Unknown Rx [Bactrim DS TAB] Promethazine [Phenergan TAB] 25 mg PO Q6HR PRN #20 tab 11/01/16 Unknown Rx Acetaminophen [Non-Aspirin Extra 500 mg PO Q6HR PRN #30 tablet 01/14/19 Unknown Rx Strength] Famotidine [Pepcid] 20 mg PO BID #10 tablet 01/14/19 Unknown Rx Ondansetron [Zofran Odt] 4 mg PO Q8HR PRN #20 tab.samanthadis 01/14/19 Unknown Rx Ondansetron [Zofran Odt] 4 mg PO Q8HR PRN #10 tab.rapdis 11/21/19 Unknown Rx cephALEXin [Keflex] 500 mg PO BID 7 Days #14 cap 11/21/19 Unknown Rx Naproxen [EC-Naprosyn] 500 mg PO BID PRN #14 tablet. 01/29/20 Unknown Rx Ondansetron [Zofran Odt] 4 mg PO Q8HR PRN #12 tab.rapdis 09/05/20 Unknown Rx ED Physical Exam - General Limitations: No Limitations ED Course Vital Signs 07/15/21 15:11 Temperature 98.8 F Pulse Rate 61 Respiratory 18 Rate Blood Pressure 142/67 [Right] O2 Sat by Pulse 99 Oximetry Critical care attestation.: If time is entered above; I have spent that time in minutes in the direct care of this critically ill patient, excluding procedure time. ED Disposition Clinical Impression: Eloped from emergency department Disposition: LEFT AWOL/ELOPED Is pt being admited?: No Condition: Stable Instructions: Abdominal Pain (ED) Referrals: ARTURO TAVAREZ MD [Primary Care Provider] - 3-5 Days
[2021-07-15 17:24] LABS: Bilirubin,Urine NEG (Negative); Blood,Urine MOD (Negative); Color,Urine Yellow (Yellow); Mucus,Urine FEW /HPF; Protein,Urine <15 mg/dL mg/dL (Negative); Urobilinogen,Urine < 2.0 mg/dL (<2.0)
--- NOTE | 2021-07-15 18:13 | Ultrasound Report ---
ULTRASOUND PELVIS INDICATION / CLINICAL INFORMATION: abdominal pain, recent miscarriage. Pelvic pain. TECHNIQUE: Transabdominal. Duplex Color Doppler used: Yes. COMPARISON: None available FINDINGS: UTERUS: - Appearance: No significant abnormality. No abnormal vascularity. - Size (cm): 7.4 x 3.9 x 4.1 - Endometrial Complex (if present): No significant abnormality.. Thickness in cm (if measured) = 0.4 - Mass or cyst: None. - Additional findings: None. RIGHT ADNEXA: No significant ovarian cyst or mass. Normal color Doppler blood flow. LEFT ADNEXA: No significant ovarian cyst or mass. Normal color Doppler blood flow. URINARY BLADDER: No significant abnormality. FREE FLUID: None. ADDITIONAL FINDINGS: None. IMPRESSION: 1. No significant abnormality. Signer Name: Colin Davidson MD Signed: 07/15/2021 6:09 PM Workstation Name: [id number]
== END 2021-07-15 16:00 | disposition left against medical advice (07) ==
LOC: ED 14:22
DX: N93.9 Abnormal uterine and vaginal bleeding, unspecified (principal); R10.9 Unspecified abdominal pain; E11.9 Type 2 diabetes mellitus without complications
CPT/HCPCS: 76856; 81001; 99283